=== PATIENT | female | born 1950 | race Caucasian/White ===

== ENCOUNTER 2019-03-05 09:05 | Outpatient (CLI) | payer MEDICARE, OTHER, SELFPAY ==
--- NOTE | 2019-03-05 09:39 | MM_ITS ---
WS: [id number] BILATERAL DIGITAL SCREENING MAMMOGRAPHY WITH CAD CLINICAL INFORMATION: SCREENING HISTORY: Screening mammogram. No current complaints. COMPARISON: None. TECHNIQUE: Bilateral CC and MLO views. FINDINGS: The breasts are composed of heterogeneous fibroglandular density tissue, which can limit the detectio n of small underlying mass lesions. No obvious mammographic abnormality deep to the palpable marker r ight breast. Dystrophic calcification right breast. Heterogeneous diffuse calcifications right breast mid depth along the posterior nipple line some in a ductal distribution. Recommend SPOT MAGNIFICATION views for further evaluation. In addition, 1.8 cm focal asymmetric density right breast associated with the calcifications mid dept h along the posterior nipple line. Recommend SPOT COMPRESSION views and ULTRASOUND of this area. RIGHT DIAGNOSTIC MAMMOGRAPHY AND ULTRASOUND RIGHT BREAST REQUIRED DUE TO PALPABLE LUMP. Left breast appears unremarkable. MM/[place] [id number] IMPRESSION: BI-RADS: 0-Incomplete: Need additional imaging evaluation FOLLOW UP: Need Additional Imaging
== END 2019-03-05 09:06 | disposition home or self-care (01) ==
PROVIDERS: Family Provider Nurse Practitioner; Visit Provider Family Medicine
DX: Z12.31 Encounter for screening mammogram for malignant neoplasm of breast (principal)
CPT/HCPCS: 77067

== ENCOUNTER 2019-04-07 07:57 | Outpatient (CLI) | payer MEDICARE, OTHER, SELFPAY ==
--- NOTE | 2019-04-07 08:28 | US_ITS ---
WS: [id number] RIGHT DIGITAL MAMMOGRAPHY WITH CAD CLINICAL INFORMATION: RT BREAST LUMP COMPARISON: March 05, 2019 TECHNIQUE: 5 views of the right breast were obtained. FINDINGS: The right breast is composed of heterogeneous fibroglandular density tissue, which can limit the dete ction of small underlying mass lesions. Again seen is the 1.8 cm focal asymmetric density right breast with associated calcifications extendi ng along the posterior nipple line. This is unchanged since the prior screening mammogram and persist s on the spot compression view. Ultrasound is pending. Spot magnification views demonstrates heterogeneous pleomorphic and fine linear branching calcificati ons some in a ductal distribution associated with the asymmetric density and extending along the oute r quadrant right breast. ULTRASOUND BREAST RIGHT TECHNIQUE: Ultrasound right breast focused area of concern. CLINICAL INFORMATION: RT BREAST LUMP COMPARISON: None. FINDINGS: Ultrasound right breast 9:00 position in the area of palpable abnormality. There is a 2.6 x 1.6 hypoe choic irregular solid lesion. Associated vascularity. Findings suspicious for neoplasm. Right axilla is evaluated. No visualized enlarged pathologic lymph nodes. US/US breast RT limited* [id number] IMPRESSION: BI-RADS: 5-Highly Suggestive of Malignancy FOLLOW UP: US Guided Biopsy Recommended
== END 2019-04-07 07:58 | disposition home or self-care (01) ==
LOC: RADSHAW 08:01
PROVIDERS: Family Provider Nurse Practitioner; PCP Family Medicine; Visit Provider Family Medicine
DX: N63.15 Unspecified lump in the right breast, overlapping quadrants (principal)
CPT/HCPCS: 76642; 77065

== ENCOUNTER 2019-04-21 12:07 | Outpatient (CLI) | payer MEDICARE, OTHER, SELFPAY ==
--- NOTE | 2019-04-21 12:12 | US_ITS ---
WS: [id number] ULTRASOUND-GUIDED Right BREAST BIOPSY CLINICAL INFORMATION: RT BREAST LUMP COMPARISON: None. FINDINGS: The procedure including risks, benefits, and complications were discussed with the patient who agreed to proceed. Using sterile technique patient was prepped and draped in the usual sterile fashion. Aft er 1% lidocaine utilizing real-time ultrasound guidance 5 14-gauge cores were obtained of the right b reast lesion at the 9 o'clock position. Subsequently a titanium clip was placed in the biopsy cavity. No immediate complications. Pathology demonstrates invasive ductal carcinoma grade 2. Tumor size 1.3 CM. US/[place] [id number] IMPRESSION: 1. Uncomplicated ultrasound-guided right breast biopsy. 2. The pathology demonstrates invasive ductal carcinoma grade 2 3. Breast cancer prognostic profile pending. BI-RADS: 6-Known Biopsy-Proven Malignancy FOLLOW UP: See Report Recommend Breast surgery consultation .
[2019-04-30 09:25] LABS: Miscellaneous Test See Scanned Lab Rpt
== END 2019-04-21 12:08 | disposition home or self-care (01) ==
LOC: RAD 12:09
PROVIDERS: Family Provider Nurse Practitioner; PCP Family Medicine; Visit Provider Family Medicine
DX: C50.811 Malignant neoplasm of overlapping sites of right female breast (principal)
CPT/HCPCS: 19083; 88305; 88361; 88374; J2001

== ENCOUNTER 2019-07-12 10:31 | Outpatient (CLI) | payer MEDICARE, OTHER, SELFPAY ==
--- NOTE | 2019-07-13 13:44 | N.ONRAD NP_ITS ---
Radiation Oncology New Patient Visit Patient: Dorie Mejia MR#: [id number] : 1950> Age: 68> Sex: Female> Dictated by: Dr. Lan Hickman Date of Service: 07/12/2019 Referring Physician(s) : Diagnosis: C50.111 - malignant neoplasm of central portion of right female breast, Diagnosed 07/12/2019 (active). Radiotherapy to date: Summary > No prior radiation therapy. 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 Tumor was ER positive [place] positive HER-2/letitia negative. Oncotype DX score was 0. She underwent ultrasound-guided biopsy on April 21, 2019 she underwent definitive lumpectomy and sentinel lymph node sampling on May 24, 2019 she underwent reexcision for clear margins on June 24, 2019. As she has a favorable Oncotype DX score no chemotherapy was indicated we were asked to see her regarding adjuvant breast radiation treatment. Ms. Mata Mejia is a 68-year-old woman who noted a asymptomatic mass in her right breast while showering. Follow-up mammography on April 07, 2019 revealed a 1.8 cm focal asymmetric density in the right breast posterior to the nipple line unchanged from prior mammography. Ultrasonography revealed a 2.6 x 1.6 cm hypoechoic irregular solid lesion with vascularity suspicious for neoplasm. She underwent ultrasound-guided biopsy on April 21, 2019 which did confirm malignancy. Tumor was strongly ER positive at 96% [place] positive at 96% HER-2/letitia was not overexpressed. She then underwent right lumpectomy and sentinel lymph node sampling on May 24 2019 minutes revealed a 2.4 cm primary lesion. Closest margin was 2 mm DCIS was less than 1 mm from the closest margin. One lymph node was sampled and revealed a 4 mm deposit of metastatic disease. On June 23, 2018 she underwent reexcision for clear margins pathology at that time was clear for any residual disease She had an Oncotype DX score evaluated which was 0 and revealed only 9% risk of recurrence at 9 years with aromatase inhibitor or tamoxifen alone and no apparent benefit seen for chemotherapy in her case As result she is now to begin anastrozole after adjuvant radiation treatment Her weight and appetite and energy level are all stable. She does not go outside much in the summer because it causes an allergic cough or tickle this is gone on seasonally for many years. Current Medications: Antacid, cough Drops, ibuprofen. Allergies: Penicillin V Potassium and sulfADIAZINE. Medical History: No history of collagen vascular disease. No previous radiation therapy. Surgical History: Hysterectomy in 1982 and lumpectomy on 05/24/2019. Family History: Father is at age 66. Mother is at age 97. Maternal Uncle is at age 56 having experienced Colon Cancer. Father at the age of 66 from pancreatitis. Mother at age 97 from aspiration pneumonia and also had dementia. Had a maternal uncle who from colon cancer at the age of 56. Social History: Last screened on 07/12/2019 - Never smoked. Last screened on 07/12/2019 - Never drank. 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 Denies lack of appetite, fever, night sweats and change in weight. Eyes - Denies blurred vision and double vision. ENMT - Complains of mouth dryness. Denies dysphagia, ear pain, problems with hearing, stomatitis, altered taste and tinnitus. Neck - Denies neck pain. Integumentary - Denies rash. Breasts - Denies pain but has right breast heaviness. Cardiovascular - Denies arrhythmias, chest pain and edema. Respiratory - Complains of cough related to outdoor allergies. Denies dyspnea, hemoptysis and wheezing. Gastrointestinal - Complains of heartburn / dyspepsia. Denies abdominal pain, constipation, diarrhea, melena / GI bleeding, nausea and vomiting. Genitourinary (F) - Complains of nocturia gets up about 1 time per night. Denies dysuria, frequency, urgency, vaginal discharge / bleeding and vaginal spotting. Musculoskeletal - Complains of joint pain in the right knee and hip. Denies bone pain and muscle weakness. Neurologic - Complains of headaches occasionally. Denies dizziness. Endocrine - Denies diabetes and thyroid disease. Hematologic/Lymphatic - Denies tender or enlarged lymph nodes.. Vital Signs: Performed on 07/12/2019 11:18 AM BMI - 41.736 kg/m2 (high), Height - 51.00 in, Weight - 154.4 lbs, Temperature - 99.2 f, Pulse - 88, Respiration - 16, O2 Sat - 97 %, Pain - 0 and BP - 138/ 85 mm(hg). Physical Exam: Examination revealed a robust pleasant woman in no acute distress HEENT examination unremarkable. Arms had full range of motion no arm edema. Lymph nodes she had no palpable cervical supraclavicular or axillary adenopathy. Lungs were clear to auscultation. Heart regular without murmur gallop. Abdominal examination unremarkable. Right breast revealed semicircular incision around the areola. Well-healed breast unremarkable palpation outside of subtle fullness in the right central breast. Performance Status: 1 - No physically strenuous activity, but ambulatory and able to carry out light or sedentary work (e.g. office work, light house work). (ECOG) Pathology: Primary, c50.111 - malignant neoplasm of central portion of right female breast, Diagnosed 07/12/2019 (active). Lab: Current laboratory studies are not available at this time Imaging: See HPI Impression: In summary my impression is that of stage II (T2 N1 M0) grade 2 invasive ductal carcinoma the right breast she is ER and [place] positive HER-2/letitia negative with a 0 Oncotype DX score she has had reexcision with no residual disease at second surgery. She is healing well following this second resection. At this time she can proceed with adjuvant breast radiation therapy. I discussed the goals and toxicities of radiation. I outlined that radiation is a significant improvement in durable control over lumpectomy alone. I also discussed that phase 3 studies now show that 4-week course of hypofractionated radiation yields the same good outcome as conventional 6-week course of treatment. Thank you for allowing us to participate in her evaluation. Plan: Signed by: 07/13/2019 8:35:11 AM <<Signature on File>> Time spent with patient: 60 minutes CPT Code: CPT Code:
== END 2019-07-12 10:32 | disposition home or self-care (01) ==
PROVIDERS: PCP Family Medicine; Visit Provider Radiology Radiation Oncology
DX: C50.111 Malignant neoplasm of central portion of right female breast (principal); Z17.0 Estrogen receptor positive status [ER+]; C77.3 Secondary and unspecified malignant neoplasm of axilla and upper limb lymph nodes; K21.9 Gastro-esophageal reflux disease without esophagitis; Z90.11 Acquired absence of right breast and nipple; Z90.710 Acquired absence of both cervix and uterus; Z92.3 Personal history of irradiation; Z79.899 Other long term (current) drug therapy
CPT/HCPCS: 99204

== ENCOUNTER 2019-07-30 06:48 | Outpatient (RCR) | payer MEDICARE, OTHER, SELFPAY ==
--- NOTE | 2019-07-19 | CT_ITS ---
Radiation Therapy Planning CT images; total exam DLP: 347.34 mGy-cm MTDD
--- NOTE | 2019-08-03 17:36 | ONCRAD TMN_ITS ---
Radiation Oncology Weekly Treatment Management Patient: Dorie Mejia MR#: [id number] : 1950> Age: 68> Sex: Female Dictated by: Dr. Lan Hickman Date of Service: 07/27/2019 Referring Physician(s) : Primary Diagnosis: C50.111 - Malignant neoplasm of central portion of right female breast, Diagnosed 07/12/2019 (Active) Radiotherapy to date: Course: RT Breast 2019, Treatment Site: R Breast 4256, Ref. ID: [id number], Energy: 15X/6X, Dose/Fx (cGy): 266, #Fx: , Dose Correction (cGy): 0, Total Dose (cGy): 266, Start Date: 07/27/2019, Elapsed Days: 0 Current Complaints/Interval History: She has just begun treatment today. Samples of Aquaphor were given. She will plan to increase her daily activity level. Constitutional Complains of mild fatigue. Denies lack of appetite, fever and night sweats. ENMT Denies dysphagia. Integumentary No redness to the right breast Breasts Denies pain. Cardiovascular Denies chest pain. Respiratory Complains of cough occaisonally related to sinus drainage. Denies dyspnea and wheezing. Current Medications: Antacid, cough Drops, ibuprofen. Allergies: Penicillin V Potassium and sulfADIAZINE. Vital Signs: Physical Exam: Appears stable, no skin erythema or desquamation. Performance Status: 1 - No physically strenuous activity, but ambulatory and able to carry out light or sedentary work (e.g. office work, light house work). (ECOG) Lab: None pending in Radiation Oncology. Imaging: No new diagnostic imaging was performed since the last weekly treatment visit. All radiation therapy related imaging (including but not limited to kV, MV, and CBCT generated images) was reviewed. Appropriate changes, if any, were made to assure accurate target localization. Impression/Plan: Tolerating treatment well with expected side effects. Continue treatment as planned. CPT: 99610 Signed by: Dr. Lan Hickman>08/03/2019 5:35:21 PM <<Signature on File>>
== END 2019-08-01 23:59 | disposition home or self-care (01) ==
LOC: ONCMED 06:48
PROVIDERS: PCP Family Medicine; Visit Provider Radiology Radiation Oncology
DX: Z51.0 Encounter for antineoplastic radiation therapy (principal); C50.111 Malignant neoplasm of central portion of right female breast; Z17.0 Estrogen receptor positive status [ER+]; K21.9 Gastro-esophageal reflux disease without esophagitis
CPT/HCPCS: 77280; 77295; 77300; 77334; 77412; 77417

== ENCOUNTER 2019-08-16 06:52 | Outpatient (RCR) | payer MEDICARE, OTHER, SELFPAY ==
--- NOTE | 2019-08-03 17:43 | ONCRAD TMN_ITS ---
Radiation Oncology Weekly Treatment Management Patient: Dorie Mejia MR#: [id number] : 1950 Age: 68 Sex: Female Dictated by: Dr. Lan Hickman Date of Service: 08/03/2019 Referring Physician(s) : Primary Diagnosis: C50.111 - Malignant neoplasm of central portion of right female breast, Diagnosed 07/12/2019 (Active) Radiotherapy to date: Course: RT Breast 2019, Treatment Site: R Breast 4256, Ref. ID: [id number], Energy: 15X/6X, Dose/Fx (cGy): 266, #Fx: , Dose Correction (cGy): 0, Total Dose (cGy): 1,596, Start Date: 07/27/2019, Elapsed Days: 7 Current Complaints/Interval History: Feeling better now than in a long time. More active. No breast symptoms. Using Aquphor. Constitutional Denies lack of appetite, fatigue, fever, night sweats and change in weight. ENMT Denies dysphagia. Integumentary Has no redness to the right breast Breasts Denies pain. Cardiovascular Denies arrhythmias, chest pain and edema. Respiratory Complains of cough occasionally. Denies dyspnea and wheezing. Current Medications: Antacid, cough Drops, ibuprofen. Allergies: Penicillin V Potassium and sulfADIAZINE. Vital Signs: Performed on 08/03/2019 3:53 PM BMI - 41.844 kg/m2 (high), Height - 51.00 in, Weight - 154.8 lbs, Temperature - 98.0 f, Pulse - 68, Respiration - 18, O2 Sat - 98 %, Pain - 0 and BP - 121/ 78 mm(hg). Physical Exam: No significant breast erythema noted. Performance Status: 1 - No physically strenuous activity, but ambulatory and able to carry out light or sedentary work (e.g. office work, light house work). (ECOG) Lab: None pending in Radiation Oncology. Imaging: No new diagnostic imaging was performed since the last weekly treatment visit. All radiation therapy related imaging (including but not limited to kV, MV, and CBCT generated images) was reviewed. Appropriate changes, if any, were made to assure accurate target localization. Impression/Plan: Tolerating treatment well with expected side effects. Continue treatment as planned. CPT: 01025 Signed by: Dr. Lan Hickman>08/03/2019 5:42:33 PM <<Signature on File>>
--- NOTE | 2019-08-10 15:35 | N.ONRAD NP_ITS ---
Radiation Oncology Weekly Treatment Management Patient: Dorie Mejia MR#: [id number] : 1950> Age: 68> Sex: Female Dictated by: Lxeie Webber Date of Service: 08/10/2019 Referring Physician(s) : Diagnosis: C50.111 - Malignant neoplasm of central portion of right female breast, Diagnosed 07/12/2019 (Active) Patient presents today for check-up by registered nurse. The patients has had Course: RT Breast 2019, Treatment Site: R Breast 4256, Ref. ID: [id number], Energy: 15X/6X, Dose/Fx (cGy): 266, #Fx: , Dose Correction (cGy): 0, Total Dose (cGy): 2,926, Start Date: 07/27/2019, Elapsed Days: 14. Patient Has complaint of slight redness to under the right breast. I have addressed complaints by making sure patient is applying Aquaphor which she is doing it three times per day. Nursing assessment of patient as follows: Constitutional Complains of fatigue off and on. Denies lack of appetite, fever and night sweats. ENMT Denies dysphagia. Integumentary Has slight redness to under the right breast Breasts Denies pain. Cardiovascular Denies chest pain. Respiratory Complains of cough occasionally. Denies dyspnea and wheezing. Questions encouraged and answered. I encouraged patient to call with any concerns. Patient verbalized understanding and denied any further needs at this time. Vital Signs: Performed on 08/10/2019 3:21 PM BMI - 41.682 kg/m2 (high), Height - 51.00 in, Weight - 154.2 lbs, Temperature - 98.5 f, Pulse - 74, Respiration - 18, O2 Sat - 97 %, Pain - 0 and BP - 131/ 78 mm(hg). Signed by: Lexie Webber>08/10/2019 3:35:01 PM <<Signature on File>>
== END 2019-08-16 23:59 | disposition home or self-care (01) ==
LOC: ONCMED 06:52
PROVIDERS: PCP Family Medicine; Visit Provider Specialist
DX: Z51.0 Encounter for antineoplastic radiation therapy (principal); C50.111 Malignant neoplasm of central portion of right female breast; Z17.0 Estrogen receptor positive status [ER+]; K21.9 Gastro-esophageal reflux disease without esophagitis
CPT/HCPCS: 77336; 77412; 77417

== ENCOUNTER 2019-08-17 12:11 | Emergency (ER) | payer MEDICARE, OTHER, SELFPAY ==
[2019-08-17 12:25] VITALS: BP 169/96; PULSE 78; RESP 16; O2SAT 96; BMI 29.0
--- NOTE | 2019-08-17 12:33 | XR_ITS ---
WS: [id number] XR chest 1V portable [id number] REASON FOR EXAM: chest pain FINDINGS: The heart and mediastinal interfaces normal. There is degenerate changes with spurring throughout the thoracic spine. The lung mota are adequately aerated. No pneumonia, pleural effusion, pulmonary edema, or mass effe ct. Granulomas are seen these are unchanged since previous exam March 02, 2015. The hilum and apices normal. XR/XR chest 1V portable [id number] IMPRESSION: Negative chest for acute findings.
--- NOTE | 2019-08-17 12:33 | ECG_ITS ---
[facility] ED Test Date: 2019-08-17 Pat Name: Dorie Mejia Department: Room: Gender: 1 Pole Tester: : 1950 Requested By: German Guzman Order Number: [id number] Lj MD: Ebonie Null M.D. Measurements Intervals [place] Rate: 75 P: 66 NH: 145 QRS: 14 QRSD: 87 T: 26 QT: 383 QTc: 429 Interpretive Statements SINUS RHYTHM WITH SINUS ARRHYTHMIA No previous ECG available for comparison Electronically Signed On 08-18-2019 13:45:44 CDT by Ebonie Null M.D. [email or web address]
[2019-08-17 12:35] VITALS: BP 169/96; PULSE 88; RESP 17; O2SAT 98
--- NOTE | 2019-08-17 12:45 | W.ED.CHESTPA ---
HPI - Chest Pain General: Chief Complaint: Chest Pain Stated Complaint: cp Time Seen by Provider: 08/17/19 12:33 History of Present Illness: HPI narrative: 60-year-old female comes in complaining of chest pain that she had began early this morning is kind been on and off she first initially felt that was reflux she took some antacid she has had similar episodes in the past with antacids have relieved it completely. She describes the pain as being on the left side radiating into her back the antacids did not help she later took an aspirin instead pain seemed to improve but after that she felt disoriented kind of out of it she felt like she might actually pass out over that this point chest pain is completely resolved she still has a mild dyspnea but states she thinks some of it may be anxiety over this whole episode. At this time she is not having any sharp or pressure-like chest pain radiating into the back. MD complaint: chest pain Onset (ago): hour(s) Timing of current episode: episodic Prior episodes: No Onset: during rest Pain location: left chest Pain radiation: back Severity: moderate Quality: tightness Relieving factors: nothing Exacerbating factors: nothing Associated symptoms: Reports nausea; Deny abdominal pain, diaphoresis, dyspnea, fever(s), leg edema or palpitations Treatment prior to arrival: none Review of Systems Const: Denies: fever(s) or diaphoresis ENMT: Denies: throat pain, ear or mastoid pain, nasal discharge or nasal congestion Card: Denies: palpitations Resp: Reports: pain on inspiration; Denies: dyspnea GI: Reports: nausea; Denies: abdominal pain : Denies: flank pain, difficulty voiding, dysuria, urinary frequency or urinary urgency Skin/Breast: Denies: rash or pruritus PFSH ED PFSH: Medical History Gastroesophageal reflux disease Surgical History H/O: hysterectomy S/P breast lumpectomy Social History Smoking and tobacco status: never smoked Physical Exam Const: COMMON NORMALS: no acute distress GENERAL APPEARANCE: cooperative and comfortable ORIENTATION/CONSCIOUSNESS: Yes awake, Yes oriented to person, Yes oriented to place and Yes oriented to time HENMT: COMMON NORMALS: normocephalic, atraumatic, hearing grossly normal bilaterally, external ears normal, EAC's normal, TM's normal bilaterally, Normal nasal mucous membranes and turbinates present, moist oral mucous membranes and oropharynx normal HEAD & SCALP: normocephalic and atraumatic NOSE: Normal nasal mucous membranes and turbinates present EXTERNAL EAR: Yes external ears normal EXTERNAL AUDITORY CANAL: EAC's normal TYMPANIC MEMBRANE: TM's normal bilaterally Eye: COMMON NORMALS: Equal, round and reactive pupils present, EOMs intact bilaterally, conjunctivae normal and no scleral icterus CONJUNCTIVA: Yes conjunctivae normal PUPIL: Yes Equal, round and reactive pupils present Neck/C-Spine: COMMON NORMALS: full ROM, no lymphadenopathy, supple and no JVD Lymph: LYMPHATIC: no lymphadenopathy noted and no lymphedema noted Resp: COMMON NORMALS: normal respiratory effort, No retractions, No use of accessory muscles and clear to auscultation bilaterally AUSCULTATION: clear to auscultation bilaterally Cardio: COMMON NORMALS: no JVD, regular rate, regular rhythm and No murmurs present (Cardio) RATE: regular rate RHYTHM: regular rhythm GI: COMMON NORMALS: Soft to palpation and No hepatosplenomegaly present AUSCULTATION: Yes normoactive bowel sounds PALPATION: Yes Soft to palpation, No Tenderness to palpation present (GI), No Guarding due to palpation present (GI) and Yes No hepatosplenomegaly present Extremity: COMMON NORMALS: normal to inspection, capillary refill normal, no clubbing, cyanosis or edema, no calf tenderness and no pedal edema Neuro: SENSORIUM/ORIENTATION: Yes oriented to person, Yes oriented to place and Yes oriented to time Skin: COMMON NORMALS: no rashes or lesions noted GENERAL SKIN EXAM: no rashes or lesions noted Course Vital Signs: Vital signs: Vital Signs Pulse Rate 76 08/17/19 16:03 Respiratory Rate 16 08/17/19 16:03 Blood Pressure 153/87 08/17/19 16:03 Pulse Oximetry 95 08/17/19 16:03 MDM - Chest Pain MDM Narrative: Medical decision making narrative: We will go ahead and start her on pantoprazole. Seems to be more GI in nature. However follow-up with her primary care doctor about further evaluation if she has any worsening or change symptoms return to the emergency room. Did ask her to start taking baby aspirin daily as well to. Lab Data: Labs: Lab Results 08/17/19 08/17/19 08/17/19 Range/Units 12:42 12:42 12:42 WBC 6.4 (4.0-10.0) 10^3/ uL RBC 5.09 (4.1-5.3) 10^6/u L Hgb 14.1 (11.5-15.3) g/dL Hct 43.7 (37.0-47.0) % MCV 85.9 (81-99) fL MCH 27.7 L (28.0-34.0) pg MCHC 32.3 (30.0-36.0) g/dL RDW 12.2 (12.1-15.1) % Plt Count 297 (130-400) 10^3/c mm MPV 9.1 (7.4-10.4) fL Neut % (Auto) 53.2 % Lymph % (Auto) 32.3 % Long % (Auto) 9.1 % Eos % (Auto) 3.8 % Baso % (Auto) 1.1 % Neut # (Auto) 3.4 (1.8-7.7) 10^3/u L Lymph # (Auto) 2.1 (0.8-4.8) 10^3/u L Long # (Auto) 0.6 (0.2-0.9) 10^3/u L Eos # (Auto) 0.2 (0.0-0.8) 10^3/u L Baso # (Auto) 0.1 (0.0-0.1) 10^3/u L Nucleated RBC % (a uto) 0 % Nucleated RBCs # 0.0 /100WBC Sodium 138 (136-145) mmol/L Potassium 4.0 (3.5-5.1) mmol/L Chloride 101 (98-107) mmol/L Carbon Dioxide 24 (22-29) mmol/L Anion Gap 17.0 (5-19) BUN 10 (8-23) mg/dL Creatinine 0.9 (0.5-0.9) mg/dL GFR Calculation 62.3 L (90-130) mL/min Glucose 103 (65-115) mg/dL Calculated Osmolal ity 282 L (285-295) mOsm/k g Calcium 10.3 (8.5-10.5) mg/dL Total Bilirubin 0.2 (0.15-1.2) mg/dL AST 18 (0-32) U/L ALT 21 (0-33) U/L Alkaline Phosphata se 78 (35-105) IU/L Troponin T Baselin e 6 (0-10) ng/L Troponin T 120 Min [place] (0-10) ng/L Delta Troponin T (0-10) ABS# Total Protein 7.7 (6.6-8.7) g/dL Albumin 4.4 (3.5-5.2) g/dL Globulin 3.3 (1.3-4.6) g/dL Lipase 56 (13-60) U/L // Range/Units 14:46 WBC (4.0-10.0) 10^3/ uL RBC (4.1-5.3) 10^6/u L Hgb (11.5-15.3) g/dL Hct (37.0-47.0) % MCV (81-99) fL MCH (28.0-34.0) pg MCHC (30.0-36.0) g/dL RDW (12.1-15.1) % Plt Count (130-400) 10^3/c mm MPV (7.4-10.4) fL Neut % (Auto) % Lymph % (Auto) % Long % (Auto) % Eos % (Auto) % Baso % (Auto) % Neut # (Auto) (1.8-7.7) 10^3/u L Lymph # (Auto) (0.8-4.8) 10^3/u L Long # (Auto) (0.2-0.9) 10^3/u L Eos # (Auto) (0.0-0.8) 10^3/u L Baso # (Auto) (0.0-0.1) 10^3/u L Nucleated RBC % (a uto) % Nucleated RBCs # /100WBC Sodium (136-145) mmol/L Potassium (3.5-5.1) mmol/L Chloride (98-107) mmol/L Carbon Dioxide (22-29) mmol/L Anion Gap (5-19) BUN (8-23) mg/dL Creatinine (0.5-0.9) mg/dL GFR Calculation (90-130) mL/min Glucose (65-115) mg/dL Calculated Osmolal ity (285-295) mOsm/k g Calcium (8.5-10.5) mg/dL Total Bilirubin (0.15-1.2) mg/dL AST (0-32) U/L ALT (0-33) U/L Alkaline Phosphata se (35-105) IU/L Troponin T Baselin e (0-10) ng/L Troponin T 120 Min [place] 6.10 (0-10) ng/L Delta Troponin T 0.10 (0-10) ABS# Total Protein (6.6-8.7) g/dL Albumin (3.5-5.2) g/dL Globulin (1.3-4.6) g/dL Lipase (13-60) U/L Discharge Plan Discharge Patient Disposition: Home, Self-Care Clinical Impression: Atypical chest pain, Gastroesophageal reflux disease, Breast cancer Condition: Stable Prescriptions: New Protonix 40 mg tablet,delayed release (DR/EC) 40 mg PO DAILY 56 Days Qty: 56 RF: 0 No Action anastrozole 1 mg Tablet 1 mg PO DAILY RF: 0 Discharge Orders: Discharge Order (Routine); Ordered 08/17/19 Ordered By: German Jones Referrals: Daily Meyers MD [Primary Care Provider] - Discharge Diet: Usual diet Discharge Activity: Increase activity as tolerated Discharge Date/Time: 08/17/19 16:06 Coding Level of Care Code ED Record Center Coordinator for Chg Fwd Exam Comprehensive
[2019-08-17 12:53] LABS: Basophils # 0.1 10^3/uL (0.0-0.1); Basophils % 1.1 %; Eosinophils # 0.2 10^3/uL (0.0-0.8); Eosinophils % 3.8 %; Hematocrit 43.7 % (37.0-47.0); Hemoglobin 14.1 g/dL (11.5-15.3); Lymphocytes # 2.1 10^3/uL (0.8-4.8); Lymphocytes % 32.3 %; Mean Corpuscular HGB Conc 32.3 g/dL (30.0-36.0); Mean Corpuscular Hemoglobin 27.7 pg (28.0-34.0); Mean Corpuscular Volume 85.9 fL (81-99); Mean Platelet Volume 9.1 fL (7.4-10.4); Monocytes # 0.6 10^3/uL (0.2-0.9); Monocytes % 9.1 %; Neutrophils # 3.4 10^3/uL (1.8-7.7); Neutrophils % 53.2 %; Nucleated Red Blood Cells % 0 %; Platelet Count 297 10^3/cmm (130-400); Red Blood Count 5.09 10^6/uL (4.1-5.3); Red Cell Distribution Width 12.2 % (12.1-15.1); White Blood Count 6.4 10^3/uL (4.0-10.0)
[2019-08-17 13:08] LABS: Alanine Aminotransferase 21 U/L (0-33); Albumin Level 4.4 g/dL (3.5-5.2); Alkaline Phosphatase 78 IU/L (35-105); Aspartate Amino Transferase 18 U/L (0-32); Blood Urea Nitrogen 10 mg/dL (8-23); Calcium 10.3 mg/dL (8.5-10.5); Carbon Dioxide 24 mmol/L (22-29); Chloride 101 mmol/L (98-107); Globulin 3.3 g/dL (1.3-4.6); Glomerular Filtration Rate 62.3 mL/min (90-130); Glucose 103 mg/dL (65-115); Lipase 56 U/L (13-60); Osmolality Calculated 282 mOsm/kg (285-295); Sodium 138 mmol/L (136-145); Total Bilirubin 0.2 mg/dL (0.15-1.2); Total Protein 7.7 g/dL (6.6-8.7)
[2019-08-17 13:11] LABS: Troponin(5th) Baseline 6 ng/L (0-10)
[2019-08-17 13:55] VITALS: BP 153/87; PULSE 71; RESP 13; O2SAT 96
--- NOTE | 2019-08-17 14:33 | ECG_ITS ---
[facility] ED Test Date: 2019-08-17 Pat Name: Dorie Mejia Department: Room: Gender: 1 Certified Addiction Counselor: : 1950 Requested By: German Guzman Order Number: [id number] Lj MD: Ebonie Null M.D. Measurements Intervals [place] Rate: 69 P: 56 AK: 152 QRS: 14 QRSD: 84 T: 18 QT: 392 QTc: 422 Interpretive Statements SINUS RHYTHM LOW QRS VOLTAGE IN PRECORDIAL LEADS [QRS DEFLECTION < 1.0 mV IN CHEST LEADS] No previous ECG available for comparison Electronically Signed On 08-18-2019 14:16:13 CDT by Ebonie Null M.D. [id number]
[2019-08-17 16:03] VITALS: BP 153/87; PULSE 76; RESP 16; O2SAT 95
--- NOTE | 2019-08-20 09:15 | DCPLANNER ---
subcontracts manager had message to schedule a follow up appointment for patient for an outpatient stress test. Case manger faxed order to centralized scheduling, will call for appointment information.
--- NOTE | 2019-08-26 13:52 | DCPLANNER ---
Patient has a stress test scheduled for Saturday, September 07, 2019 at 10:00, centralized scheduling will call patient with appointment information.
--- NOTE | 2019-09-10 14:58 | DCPLANNER ---
Patient did attend out patient stress test scheduled for 09.07.19.
== END 2019-08-17 16:06 | disposition home or self-care (01) ==
PROVIDERS: Emergency Provider Family Medicine; PCP Family Medicine
DX: R07.89 Other chest pain (principal); K21.9 Gastro-esophageal reflux disease without esophagitis; C50.919 Malignant neoplasm of unspecified site of unspecified female breast
CPT/HCPCS: 12345; 36415; 71045; 80053; 83690; 84484; 85025; 93005; 99283; 99284

== ENCOUNTER 2019-08-24 06:55 | Outpatient (RCR) | payer MEDICARE, OTHER, SELFPAY ==
--- NOTE | 2019-08-18 15:46 | ONCRAD TMN_ITS ---
Radiation Oncology Weekly Treatment Management Patient: Dorie Mejia MR#: [id number] : 1950> Age: 68> Sex: Female Dictated by: Dr. Osman Lopez Date of Service: 08/18/2019 Referring Physician(s) : Primary Diagnosis: C50.111 - Malignant neoplasm of central portion of right female breast, Diagnosed 07/12/2019 (Active) Radiotherapy to date: Course: RT Breast 2019, Treatment Site: R Breast 4256, Ref. ID: [id number], Energy: 15X/6X, Dose/Fx (cGy): 266, #Fx: , Dose Correction (cGy): 0, Total Dose (cGy): 4,256, Start Date: 07/27/2019, End Date: 08/18/2019, Elapsed Days: Current Complaints/Interval History: Seems to be tolerating radiation well. She did go to the emergency room yesterday with chest pain. She had a cardiac evaluation which was negative. She was placed on Protonix. She states that her has wanted her to be evaluated for reflux for years. She feels significantly better today. She has started the Protonix. The chest pain was very unlikely to be related to the radiation. She is receiving right breast radiation. No regional nodes are being treated. The breast has slight redness of the skin. Otherwise she has no side effects at all. She has completed whole breast radiation, receiving a dose of 4256 cGy in 16 fractions. She is now scheduled for 4 treatment boost and will finish Friday of next week. Constitutional Denies lack of appetite, fatigue, fever, night sweats and change in weight. ENMT Denies dysphagia. Integumentary Has redness to the right breast Breasts Denies pain. Cardiovascular Complains of chest pain in which she had some yesterday and went to the ER. Denies arrhythmias and edema. Respiratory Complains of cough related to seasonal allergies. Denies dyspnea and wheezing. Current Medications: Antacid, aspirin Low Dose, cough Drops, ibuprofen, pantoprazole Sodium. Allergies: Penicillin V Potassium and sulfADIAZINE. Vital Signs: Performed on 08/18/2019 3:02 PM BMI - 41.358 kg/m2 (high), Height - 51.00 in, Weight - 153.0 lbs, Temperature - 98.2 f, Pulse - 82, Respiration - 20, O2 Sat - 98 %, Pain - 0 and BP - 130/ 86 mm(hg). Physical Exam: Appears stable, No acute distress. The right breast has no significant edema other than a small amount of areolar edema in the area of her lumpectomy incision. The incision is intact and there is no evidence of infection. There is very minimal induration in the tumor bed area. The axillary incision looks excellent and there is no tenderness or mass or evidence of infection. The breast is soft and nontender. The skin has mild erythema with no dry desquamation.. Performance Status: 1 - No physically strenuous activity, but ambulatory and able to carry out light or sedentary work (e.g. office work, light house work). (ECOG) Lab: None pending in Radiation Oncology. Imaging: No new diagnostic imaging was performed since the last weekly treatment visit. All radiation therapy related imaging (including but not limited to kV, MV, and CBCT generated images) was reviewed. Appropriate changes, if any, were made to assure accurate target localization. Impression/Plan: Tolerating treatment well with expected side effects. Continue treatment as planned. CPT: 58930 Signed by: Dr. John Lopez>08/18/2019 3:45:18 PM <<Signature on File>>
--- NOTE | 2019-08-24 16:50 | ONCRAD TMN_ITS ---
Radiation Oncology Weekly Treatment Management Patient: Dorie Mejia MR#: [id number] : 1950> Age: 68> Sex: Female Dictated by: Dr. John Lopez Date of Service: 08/24/2019 Referring Physician(s) : Diagnosis: C50.111 - Malignant neoplasm of central portion of right female breast, Diagnosed 07/12/2019 (Active) Radiotherapy to date: Course: RT Breast 2019, Treatment Site: Yztfb2Od, Ref. ID: [id number], Energy: 15X/6X, Dose/Fx (cGy): 200, #Fx: 4 / 4, Dose Correction (cGy): 0, Total Dose (cGy): 800, Start Date: 08/19/2019, End Date: 08/24/2019, Elapsed Days: 5 Treatment Site: R Breast 4256, Ref. ID: [id number], Energy: 15X/6X, Dose/Fx (cGy): 266, #Fx: 16 / 16, Dose Correction (cGy): 0, Total Dose (cGy): 4,256, Start Date: 07/27/2019, End Date: 08/18/2019, Elapsed Days: 22 Chief Complaint/History of Present Illness: Tumor dose 5056 cGy in 20 fractions. She completes her course of radiation to the breast today. She has tolerated the course of treatment well. She did have a visit to the emergency room for noncardiac chest pain last week and was started on Protonix. This morning she awakened with what appeared to be a small amount of white dried discharge on the right nipple. She cleaned it off and there is been no subsequent drainage. She has no significant discomfort in the breast. Her skin reaction has been mild. Current Medications: Antacid, aspirin Low Dose, cough Drops, ibuprofen, pantoprazole Sodium. Allergies: Penicillin V Potassium and sulfADIAZINE. Current Complaints/Review of Systems: Constitutional - Denies lack of appetite, fatigue, fever, night sweats and change in weight. ENMT - Denies dysphagia. Integumentary - Has pinkness / caraballo to the right breast. Breasts - Complains of nipple discharge from the right breast in which she woke up with it dry on the breast.. Denies pain. Cardiovascular - Denies arrhythmias and chest pain. Respiratory - Denies cough, dyspnea and wheezing. Vital Signs: Performed on 08/24/2019 3:11 PM BMI - 41.79 kg/m2 (high), Height - 51.00 in, Weight - 154.6 lbs, Temperature - 98.5 f, Pulse - 78, Respiration - 18, O2 Sat - 95 % (low), Pain - 0 and BP - 133/ 84 mm(hg). Physical Exam: Alert, oriented, no distress. The breast has no significant edema. There is slight erythema of the skin with mild dry desquamation. The lumpectomy incision is intact. There is no evidence of infection in the area of the tumor bed. There is minimal induration in the tumor bed. Overall the cosmetic result is very good. She has an excellent range of motion in the right shoulder and she has no lymphedema. Performance Status: 1 - No physically strenuous activity, but ambulatory and able to carry out light or sedentary work (e.g. office work, light house work). (ECOG) Lab: None pending in Radiation Oncology. Imaging: No new diagnostic imaging was performed since the last weekly treatment visit. All radiation therapy related imaging (including but not limited to kV, MV, and CBCT generated images) was reviewed. Appropriate changes, if any, were made to assure accurate target localization. Impression/Plan: Tolerated treatment well with a very good cosmetic result. She will return in approximately 1 month. We discussed that she will be due for postop mammography in December 2019. She is not sure whether she will have the mammography in [place] or [place].. CPT: 96395 Signed by: Dr. John Lopez>08/24/2019 4:48:41 PM <<Signature on File>>
== END 2019-08-31 23:59 | disposition home or self-care (01) ==
LOC: ONCMED 06:55
PROVIDERS: PCP Family Medicine; Visit Provider Specialist
DX: Z51.0 Encounter for antineoplastic radiation therapy (principal); C50.111 Malignant neoplasm of central portion of right female breast; Z17.0 Estrogen receptor positive status [ER+]; K21.9 Gastro-esophageal reflux disease without esophagitis
CPT/HCPCS: 77307; 77334; 77336; 77412; 77417

== ENCOUNTER 2019-09-07 07:15 | Outpatient (CLI) | payer MEDICARE, OTHER, SELFPAY ==
[2019-09-07 07:45] VITALS: BMI 29.2
--- NOTE | 2019-09-07 07:45 | ECG_ITS ---
[facility] Test Date: 2019-09-07 Pat Name: Dorie Mejia Department: Room: Gender: Female Continuous Absorption Process Operator: : 1950 Requested By: German Guzman Order Number: [id number] Lj MD: Elgin Gill M.D. Interpretive Statements NAME OF STUDY: LEXISCAN SESTAMIBI STRESS TEST INDICATION: Chest Pain RESULTS TO MORGAN LAWSON NOTE: Please note that this is the electrocardiogram portion of the Lexiscan/Sestamibi stress test. The perfusion scan will be documented separately. DATA: Baseline heart rate was 77 beats per minute. Baseline blood pressure was 163/88 millimeters of mercury. Target heart rate was 152. Maximum heart rate achieved was 129. which was 84 % of the predicted target heart rate. Maximum blood pressure was 189/91 millimeters of mercury. The reason for ending the test was completion of the protocol. The patient did not experience any symptoms. ELECTROCARDIOGRAM: BASELINE: Sinus rhythm. Normal axis. Old anterior wall myocardial infarction otherwise, no ST-T changes suggestive of ischemia noted. No arrhythmia noted. EXERCISE: After Lexiscan injection, no ST-T changes suggestive of ischemic noted. No arrhythmia noted. CONCLUSION: Please note due to baseline abnormality of the EKG specificity and sensitivity of the EKG portion of LexiScan MIBI stress test will be low 1. EKG not suggestive of ischemia 2. Lexiscan injection unremarkable. Blood pressure response was hypertensive 3. Perfusion scan will be documented separately. Electronically Signed On 09-07-2019 19:34:06 CDT by Elgin Gill M.D. [email or web address]
--- NOTE | 2019-09-07 07:46 | NMCV_ITS ---
NM ehsan perf SPECT r/s* [id number] Dorie Mejia Age: 68 Gender: F : 1950 Exam Date: 09/07/2019 08:35 Ordering Phys: German Jones DO Technologist: CHATA Schumacher Exam Location: [facility] Indications: Chest pain STRESS TEST Please see separate stress test report in [facility] for full findings IMAGE PROTOCOL Rest/Stress 1 Lexiscan Day Radiopharmaceutical Dose (mCi) Administration Site Administered by Rest: Tc-99m 10.7 IV CHATA Schumacher Sestamibi Stress:Tc-99m 32.8 IV CHATA Issa Sestamibi Rest: 07-Sep-2019 60 Discovery 630 Stress: 07-Sep-2019 45 Discovery 630 0.4mg Lexiscan. Supine position only as patient was unable to lay prone. SPECT RESULTS Technical Quality: Good Raw Data Analysis: Normal Image Corrections: No attenuation or motion correction applied Summed Stress Score: 1 Summed Rest Score: 5 Summed Difference Score: 0 PERFUSION FINDINGS Small size perfusion abnormality of mild severity of mid to apical inferolateral, apical inferior apical septal and apical rob on rest images with improved tracer uptake on stress images. This is suggestive of attenuation artifact. FUNCTIONAL RESULTS (calculated via Gated SPECT) Stress Image LV EF (%): 96 Stress EDV (mL):45 TID: 0.74 Stress ESV (mL):2 FUNCTIONAL FINDINGS: The left ventricle is normal in size. Transient Ischemia Dilatation of 0.74. There is hyperdynamic left ventricular systolic function. The left ventricular ejection fraction is hyperdynamic with a value of 96%. There is hyperdynamic left ventricular wall thickening. IMPRESSIONS 1. Myocardial perfusion imaging is normal. 2. Overall left ventricular systolic function is hyperdynamic without regional wall motion abnormalities. 3. The left ventricular ejection fraction is hyperdynamic with a value of 96%. 4. This study suggests a low likelihood of angiographically significant coronary artery disease. Ebonie Null MD (Electronically Signed) Final Date: 08 September 2019 17:54 S
--- NOTE | 2019-09-07 09:29 | SUR.PREOP ---
Patient reports no pain or discomfort prior to the start of the procedure.
[2019-09-07] MEDS: regadenoson 0.4 Mg/5 ml Syringe IVP (09:31)
[2019-09-07 09:38] VITALS: BP 152/91; PULSE 99
== END 2019-09-07 07:16 | disposition home or self-care (01) ==
LOC: RAD 07:16 → CDL 07:34
PROVIDERS: PCP Family Medicine; Visit Provider Family Medicine
DX: R07.9 Chest pain, unspecified (principal)
CPT/HCPCS: 78452; 93017; A9500; J2785

== ENCOUNTER 2020-07-20 09:55 | Outpatient (CLI) | payer MEDICARE, OTHER, SELFPAY ==
[2020-07-20 12:05] LABS: Basophils # 0.1 10^3/uL (0.0-0.1); Basophils % 0.9 %; Eosinophils # 0.2 10^3/uL (0.0-0.8); Eosinophils % 3.7 %; Hematocrit 42.6 % (37.0-47.0); Hemoglobin 13.9 g/dL (11.5-15.3); Lymphocytes # 1.6 10^3/uL (0.8-4.8); Lymphocytes % 27.5 %; Mean Corpuscular HGB Conc 32.6 g/dL (30.0-36.0); Mean Corpuscular Hemoglobin 27.7 pg (28.0-34.0); Mean Platelet Volume 9.3 fL (7.4-10.4); Monocytes # 0.4 10^3/uL (0.2-0.9); Monocytes % 7.6 %; Neutrophils # 3.38 10^3/uL (1.8-7.7); Neutrophils % 60.1 %; Nucleated Red Blood Cells % 0 %; Platelet Count 296 10^3/cmm (130-400); Red Blood Count 5.01 10^6/uL (4.1-5.3); Red Cell Distribution Width 12.5 % (12.1-15.1); White Blood Count 5.6 10^3/uL (4.0-10.0)
[2020-07-20 12:39] LABS: Alanine Aminotransferase 43 U/L (0-33); Albumin Level 4.5 g/dL (3.5-5.2); Alkaline Phosphatase 90 IU/L (35-105); Aspartate Amino Transferase 27 U/L (0-32); Blood Urea Nitrogen 13 mg/dL (8-23); Calcium 9.5 mg/dL (8.5-10.5); Carbon Dioxide 23 mmol/L (22-29); Chloride 104 mmol/L (98-107); Globulin 3.1 g/dL (1.3-4.6); Glomerular Filtration Rate 71.1 mL/min (90-130); Glucose 99 mg/dL (65-115); Osmolality Calculated 286 mOsm/kg (285-295); Sodium 138 mmol/L (136-145); Thyroid Stimulating Hormone 0.96 uIU/mL (0.27-4.20); Total Bilirubin 0.4 mg/dL (0.15-1.2); Total Protein 7.6 g/dL (6.6-8.7)
[2020-07-20 13:25] LABS: 25 Hydroxy Vitamin D 22 ng/mL (30-100)
--- NOTE | 2020-07-20 17:22 | ONC CON_ITS ---
Dr. Connell New Patient Note Patient: Dorie Mejia Unit #: [id number]: 1950 Dicatated By: Shiva Connell M.D.Date of Visit: July 20, 2020 Onc MED New Patient/Consult Referring Physician: Fredrick Montes Chief Complaint: Breast cancer. History of Present Illness: This is a 69-year-old woman with grade 2 invasive ductal carcinoma of the right breast, stage IB (T2, pN1a, M0), ER/WI positive, HER-2/letitia negative, and Oncotype DX low risk with recurrence score 0. She had become aware of a lump in the right breast sometime around January 2019. Her initial mammogram showed a 1.8 cm focal asymmetric density in the right breast. Her further mammogram views and ultrasound on 04/07/2019 were BI-RADS 5, highly suggestive of malignancy. Ultrasound showed a 2.6 x 1.6 cm hypoechoic irregular solid lesion at the 9 o'clock position, corresponding to the palpable nodule. There were no visualized enlarged axillary lymph nodes. Ultrasound-guided biopsy on 04/22/2019 showed grade 2 invasive ductal carcinoma. The breast prognostic profile showed ER positive at 96% and WI positive at 96%. HER-2/letitia was 2+ by IHC but negative by FISH with amplification ratio 1.1 and 3.3 HER-2 copies/cell. The Ki-67 was slightly high at 14%. She then had surgical consultation with Dr. Ebenezer Vincent. She underwent right breast lumpectomy with axillary sentinel lymph node biopsy on 05/24/2019. Pathology showed moderately differentiated invasive ductal carcinoma measuring 2.4 cm in greatest dimension. 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 There was DCIS within 0.1 cm of the anterior margin. The closest margin to invasive cancer is 0.2 cm. One axillary sentinel lymph node was positive for metastatic carcinoma. It measured 0.4 cm. There was no extranodal extension identified. She had reexcision lumpectomy on 06/24/2019. There is no residual malignancy identified. A postoperative mammogram in June 2019 showed seroma with 2 groups of suspicious calcifications. With that finding she had a reexcision of the anterior margin on 06/24/2019. Pathology was benign. Her Oncotype DX was found to be low risk with recurrence score of 0, corresponding to a 9-year risk of distant recurrence of 9% with adjuvant hormonal therapy. There was no predicted benefit with adjuvant chemotherapy. With that finding, she then underwent radiation to the right breast, completed on 08/24/2019 to a total dose of 5056 cGy. She then began adjuvant hormonal therapy with anastrozole 1 mg daily on 09/01/2019. Her DEXA scan on 01/13/2020 showed evidence of osteopenia with T score -2.3 in the left femoral neck. The lumbar spine T score was 1.7. She was recommended to have treatment with Prolia, which she declined. She is seen now for further management of the breast cancer. She has been feeling pretty good generally, though she says she has never had very good energy. There has been no recent change in her activity tolerance. 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 Her ECOG score is 1. She has good appetite. Her weight has been stable. She has not had fever and she does not have daytime hot flashes. She does tend to wake up at night feeling hot and having drenching sweat on a fairly frequent basis. She had a hysterectomy without oophorectomy in 1982. She thinks she had menopause in her early 40s, though she is not certain. She had no hormone replacement therapy. She has some allergy related sinus symptoms. She previously had been having cough all the time, but she says that got better after her breast surgeries. Her breathing has been okay except for the allergies. She does not complain of chest pain. Her acid reflux is adequately managed with Protonix. She has no other GI or complaints. She has a little stiffness in her joints and she has had ongoing problems with her right knee for several years. She does not complain of headache or dizziness. She sometimes has numbness in her hands during the night. She has no other focal neurologic symptoms. Past Medical History: Her medical history includes allergic rhinitis, breast cancer, and gastroesophageal reflux disease. She has a history of anemia and history of anxiety/panic attacks. Past Surgical History: Her surgical/procedural history includes reexcision lumpectomy of the right breast in 2019, right breast lumpectomy with axillary sentinel lymph node biopsy in 2019, ultrasound guided biopsy of the right breast in 2019, and hysterectomy without oophorectomy in 1982. Medications: All Day Allergy 1 Tablet (of 10 mg) Oral daily, Anastrozole 1 Tablet (of 1 mg) Tablet Oral daily, Ibuprofen 1 Tablet (of 200 mg) Tablet Oral daily PRN, Pantoprazole Sodium 1 Tablet (of 40 mg) Tablet, enteric coated Oral daily Allergies: Gold Au 198, Penicillin V Potassium, and sulfADIAZINE. Social History: Ms. Mejia is . 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 She is a non-smoker. She does not drink alcohol. Family History: Father at the age of 66 from pancreatitis. Mother had dementia and at age 97 from aspiration pneumonia. Her son has psoriatic arthritis. Her daughter has back issues and depression. A maternal uncle of colon cancer at the age of 56. Review Of Symptoms: Constitutional - She is says she has never had energy. There has been no change in her activity tolerance. She is able to do light work. Appetite is good. Her weight is stable. She has not had fever. She does not have daytime hot flashes, but she wakes up at night feeling hot inside and having a drenching sweat on a fairly frequent basis. ECOG score is 1, Eyes - No change in vision, ENMT - She recently had some transient hearing loss associated with allergies and she has allergy related sinus symptoms. No mouth sores. No sore throat or difficulty swallowing, Hematologic/Lymphatic - She has easy bruising. She has a history of anemia, Respiratory - No shortness of breath. She says she had been coughing all the time, but that is improved after her breast surgery.. No pleuritic pain or hemoptysis, Cardiovascular - No angina pain. No palpitations, Gastrointestinal - No nausea or vomiting. Her acid reflux is adequately managed with Protonix. No diarrhea or constipation. No blood in the stool or black stools, Genitourinary (F) - No dysuria or hematuria. No urinary frequency. No urgency or incontinence, Musculoskeletal - She has a little stiffness in her joints and she has been having pain in her right knee for several years. She has pain intermittently in the 4th toe on the right foot, significant enough to affect her walking, Neurologic - No headache or dizziness. She sometimes has numbness in her hands during the night. No other focal neurologic symptoms, Psychiatric - No anxiety or depression. She used to have panic attacks, but that was back in her early 40s. No insomnia. Vital Signs: Performed on July 20, 2020 10:39: 5, 2, 42.76 (HIGH), 1.50 sq.m, 51.00 in, 97 %, 73 /min, 18 /min, 148/87 mm(hg) (HIGH), 98.8 F, and 158.2 lbs (HIGH). Physical Examination: Constitutional - She appears to be in good general health, Eyes - Sclerae nonicteric. Conjunctivae clear, ENMT - No lesions noted in the oral cavity, Neck - No mass or thyromegaly, Hematologic/Lymphatic - No cervical or clavicular adenopathy, Respiratory - Lungs are clear with good air movement bilaterally, Cardiovascular - Heart rhythm is regular. There is a I/ systolic murmur. There is no gallop or rub noted, Breasts - The entire right breast is indurated and firm. There is some swelling and deformity involving the medial aspect of the nipple areolar complex. There is no discrete mass palpable. The left breast shows no mass. There is no axillary adenopathy, Abdomen - Soft. Liver and spleen are not enlarged. There is no abdominal mass or ascites noted and there is no inguinal adenopathy, Back/Spine - No spine or CVA tenderness noted, Extremities - No edema. Pedal pulses are palpable bilaterally. There is no visible abnormality in the right 4th toe, Integumentary - No rashes. No suspicious skin lesions noted, Neurologic - No focal neurologic deficits noted. Problem List: 1. Grade 2 invasive ductal carcinoma of the right breast, stage IB (T2, pN1a, M0), ER/WI positive, HER-2/letitia negative, and Oncotype DX low risk with recurrence score 0. 2. Osteopenia. 3. GERD. 4. Allergic rhinitis. Problems Addressed with this Encounter and Plan: 1. Patient with grade 2 invasive ductal carcinoma of the right breast, stage IB (T2, pN1a, M0), ER/WI positive, HER-2/letitia negative, and Oncotype DX low risk with recurrence score 0. She had presented with a palpable lump in the right breast with the diagnosis confirmed by ultrasound directed biopsy on 04/07/2019. She underwent right breast lumpectomy with axillary sentinel lymph node biopsy on 05/24/2019. She had a T2 primary lesion involving 1 sentinel lymph node. She had reexcision lumpectomy on 06/24/2019 due to abnormal postoperative mammogram, but with benign pathology. With the low risk Oncotype, chemotherapy was not recommended. She then underwent radiation to the right breast, completed on 08/24/2019 to a total dose of 5056 cGy. Adjuvant hormonal therapy with anastrozole 1 mg daily began on 09/01/2019. During follow-up she has had ongoing complaints of fatigue. She has a little stiffness in her joints and she reports having pain in her right knee, but that has been an ongoing problem for several years. She does have significant night sweating attributable to the anastrozole. Overall, she appears to be tolerating it with acceptable toxicity. Thus far there has been no evidence of recurrence of the breast cancer. She will continue adjuvant hormonal therapy with anastrozole 1 mg daily. She is overdue for her surveillance mammograms, and those will be scheduled. I will see her again in 6 months with lab studies to include CBC, comprehensive metabolic profile, TSH level, and 25 hydroxy vitamin D level. 2. She had osteopenia on her baseline DEXA scan in January 2020. She declined treatment with Prolia. She will require ongoing monitoring of her bone density. Signed By: Shiva Connell M.D. <<Signature on File>>
== END 2020-07-20 09:56 | disposition home or self-care (01) ==
LOC: ONCMED 10:05
PROVIDERS: PCP Family Medicine; Visit Provider Internal Medicine Medical Oncology
DX: C50.811 Malignant neoplasm of overlapping sites of right female breast (principal); M85.80 Other specified disorders of bone density and structure, unspecified site; K21.9 Gastro-esophageal reflux disease without esophagitis; J30.9 Allergic rhinitis, unspecified; D64.9 Anemia, unspecified; Z79.811 Long term (current) use of aromatase inhibitors; Z92.3 Personal history of irradiation
CPT/HCPCS: 36415; 80053; 82306; 84443; 85025; 99204

== ENCOUNTER 2020-08-02 13:44 | Outpatient (CLI) | payer MEDICARE, OTHER, SELFPAY ==
--- NOTE | 2020-08-02 13:49 | MM_ITS ---
WS: [id number] BILATERAL DIGITAL DIAGNOSTIC MAMMOGRAM MAMMOGRAPHY WITH CAD CLINICAL INFORMATION: HX OF BREAST CA HISTORY: History of right breast cancer radiation. COMPARISON: June 23, 2017 June 14, 2019. 04/07/2019 and 03/05/2019 TECHNIQUE: Bilateral CC, MLO, and ML views. FINDINGS: The breasts are composed of heterogeneous fibroglandular density, which can limit the detection of sm all underlying mass lesions. Postoperative changes lumpectomy upper-outer quadrant with parenchymal s carring. Skin thickening right breast due to treatment-related changes. A few punctate calcifications left breast. No suspicious focal mass, asymmetry, calcifications, or architectural distortion. MM/[id number] IMPRESSION: BI-RADS: 2-Benign FOLLOW UP: 1 Year Follow-up Recommend return to annual diagnostic mammography.
== END 2020-08-02 13:45 | disposition home or self-care (01) ==
LOC: RADSHAW 13:47
PROVIDERS: PCP Family Medicine; Visit Provider Internal Medicine Medical Oncology
DX: Z85.3 Personal history of malignant neoplasm of breast (principal)
CPT/HCPCS: 77066

== ENCOUNTER 2021-02-06 10:06 | Outpatient (CLI) | payer MEDICARE, OTHER, SELFPAY ==
--- NOTE | 2021-02-10 09:24 | ONC FU_ITS ---
Dr. Connell Patient Follow-Up Note Patient: Dorie Mejia Unit #: [id number]: 1950 Dicatated By: Shiva Connell M.D.Date of Visit:Feb 06, 2021 Onc Med Follow-up/Prog Note Chief Complaint: Breast cancer. History of Present Illness: This is a 70 year-old woman with grade 2 invasive ductal carcinoma of the right breast, stage IB (T2, pN1a, M0), ER/NV positive, HER-2/letitia negative, and Oncotype DX low risk with recurrence score 0. She had become aware of a lump in the right breast sometime around January 2019. Her initial mammogram showed a 1.8 cm focal asymmetric density in the right breast. Her further mammogram views and ultrasound on 04/07/2019 were BI-RADS 5, highly suggestive of malignancy. Ultrasound showed a 2.6 x 1.6 cm hypoechoic irregular solid lesion at the 9 o'clock position, corresponding to the palpable nodule. There were no visualized enlarged axillary lymph nodes. Ultrasound-guided biopsy on 04/22/2019 showed grade 2 invasive ductal carcinoma. The breast prognostic profile showed ER positive at 96% and NV positive at 96%. HER-2/letitia was 2+ by IHC but negative by FISH with amplification ratio 1.1 and 3.3 HER-2 copies/cell. The Ki-67 was slightly high at 14%. She then had surgical consultation with Dr. Ebenezer Vincent. She underwent right breast lumpectomy with axillary sentinel lymph node biopsy on 05/24/2019. Pathology showed moderately differentiated invasive ductal carcinoma measuring 2.4 cm in greatest dimension. 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 There was DCIS within 0.1 cm of the anterior margin. The closest margin to invasive cancer is 0.2 cm. One axillary sentinel lymph node was positive for metastatic carcinoma. It measured 0.4 cm. There was no extranodal extension identified. She had reexcision lumpectomy on 06/24/2019. There is no residual malignancy identified. A postoperative mammogram in June 2019 showed seroma with 2 groups of suspicious calcifications. With that finding she had a reexcision of the anterior margin on 06/24/2019. Pathology was benign. Her Oncotype DX was found to be low risk with recurrence score of 0, corresponding to a 9-year risk of distant recurrence of 9% with adjuvant hormonal therapy. There was no predicted benefit with adjuvant chemotherapy. With that finding, she then underwent radiation to the right breast, completed on 08/24/2019 to a total dose of 5056 cGy. Adjuvant hormonal therapy with anastrozole 1 mg daily began on 09/01/2019. Her DEXA scan on 01/13/2020 showed evidence of osteopenia with T score -2.3 in the left femoral neck. The lumbar spine T score was 1.7. She was recommended to have treatment with Prolia, which she declined. Her other medical illnesses include allergic rhinitis and GERD. She has a history of anemia and she also has a history of anxiety/panic attacks. Her prior surgeries include hysterectomy without oophorectomy in 1982. She is a non-smoker. She is seen for a follow-up visit. She has been feeling good generally. She says she has been feeling more energetic, and she has normal activity. ECOG score is zero. Her appetite is good. She has gained weight. She has not had fever. She still has some hot flashes, but not as bad. She has sinus symptoms off and on. Recently she has had a little bit of cough. She does not complain of shortness of breath or chest pain. She has no GI or complaints. She sometimes has joint pain, but it is tolerable. She very seldom has headache. She occasionally has numbness in her left hand at night. She has no other focal neurologic symptoms. Medications: Anastrozole 1 Tablet (of 1 mg) Tablet Oral daily, D3 1 Tablet (of 50 mcg ) Oral daily, Ibuprofen 1 Tablet (of 200 mg) Tablet Oral daily PRN, Pantoprazole Sodium 1 Tablet (of 40 mg) Tablet, enteric coated Oral daily Allergies: Gold Au 198, Penicillin V Potassium, and sulfADIAZINE. Vital Signs: Performed on Feb 06, 2021 13:00 Height - 51.00 in Weight - 161.8 lbs (HIGH) BSA - 1.52 sq.m BMI - 43.74 (HIGH) Temperature - 98.2 F (LOW) Pulse - 91 /min Respiration - 16 /min BP - 168/83 mm(hg) (HIGH) O2 Sat - 95 % (LOW) Pain - 0 Fatigue - 4 Physical Examination: Constitutional - She looks good generally, Eyes - Sclerae nonicteric. Conjunctivae clear, ENMT - No lesions noted in the oral cavity, Hematologic/Lymphatic - No cervical or clavicular adenopathy, Respiratory - Lungs are clear with good air movement bilaterally, Cardiovascular - Heart rhythm is regular. There is no murmur, gallop, or rub noted, Abdomen - Soft. Liver and spleen are not enlarged. There is no abdominal mass or ascites noted and there is no inguinal adenopathy, Extremities - No edema, Neurologic - No focal neurologic deficits noted. Problem List: 1. Grade 2 invasive ductal carcinoma of the right breast, stage IB (T2, pN1a, M0), ER/NV positive, HER-2/letitia negative, and Oncotype DX low risk with recurrence score 0. 2. Osteopenia. 3. GERD. 4. Allergic rhinitis. Problems Addressed with this Encounter and Plan: 1. Patient with grade 2 invasive ductal carcinoma of the right breast, stage IB (T2, pN1a, M0), ER/NV positive, HER-2/letitia negative, and Oncotype DX low risk with recurrence score 0. She had presented with a palpable lump in the right breast with the diagnosis confirmed by ultrasound directed biopsy on 04/07/2019. She underwent right breast lumpectomy with axillary sentinel lymph node biopsy on 05/24/2019. She had a T2 primary lesion involving 1 sentinel lymph node. She had reexcision lumpectomy on 06/24/2019 due to abnormal postoperative mammogram, but with benign pathology. With the low risk Oncotype, chemotherapy was not recommended. She then underwent radiation to the right breast, completed on 08/24/2019 to a total dose of 5056 cGy. Adjuvant hormonal therapy with anastrozole 1 mg daily began on 09/01/2019. During follow-up she had complainted of some fatigue and she also reported some joint pain and stiffness. At this point her energy/activity tolerance has improved, and the joint pain remains tolerable. Overall, she has been doing well clinically with no evidence of recurrence of the breast cancer. She continues adjuvant hormonal therapy with anastrozole 1 mg daily. She will be scheduled for a follow-up visit in 6 months. 2. She had osteopenia on her baseline DEXA scan in January 2020. She declined treatment with Prolia. She requires ongoing monitoring of her bone density. 3. She has GERD. It has been well controlled with pantoprazole. She would like to try getting off her PPI, so she will be given a prescription for famotidine 20 mg daily. Signed By: Shiva Connell M.D. <<Signature on File>>
== END 2021-02-06 10:07 | disposition home or self-care (01) ==
PROVIDERS: PCP Family Medicine; Visit Provider Internal Medicine Medical Oncology
DX: C50.811 Malignant neoplasm of overlapping sites of right female breast (principal); Z17.0 Estrogen receptor positive status [ER+]; M85.80 Other specified disorders of bone density and structure, unspecified site; K21.9 Gastro-esophageal reflux disease without esophagitis; J30.9 Allergic rhinitis, unspecified; Z90.11 Acquired absence of right breast and nipple; Z79.818 Long term (current) use of other agents affecting estrogen receptors and estrogen levels; Z79.899 Other long term (current) drug therapy; Z92.21 Personal history of antineoplastic chemotherapy
CPT/HCPCS: 99214

== ENCOUNTER 2021-08-13 14:16 | Outpatient (CLI) | payer MEDICARE, OTHER, SELFPAY ==
--- NOTE | 2021-08-13 14:35 | MM_ITS ---
WS: [id number] BILATERAL 3D TOMOSYNTHESIS DIGITAL DIAGNOSTIC MAMMOGRAPHY WITH CAD CLINICAL INFORMATION: HX OF BR CA COMPARISON: August 02, 2020 TECHNIQUE: Bilateral CC, MLO, and ML views. FINDINGS: The breasts are composed of heterogeneous fibroglandular density, which can limit the detection of sm all underlying mass lesions. Punctate calcifications. Stable postoperative changes RIGHT lumpectomy w ith parenchymal fibrosis and skin thickening due to treatment-related changes.. No suspicious focal mass, asymmetry, calcifications, or architectural distortion. No evidence of emilia gnancy. MM/[id number] IMPRESSION: BI-RADS: 2-Benign FOLLOW UP: 1 Year Follow-up Recommend return to annual diagnostic mammography.
== END 2021-08-13 14:17 | disposition home or self-care (01) ==
LOC: RAD 14:21
PROVIDERS: PCP Family Medicine; Visit Provider Family Medicine
DX: Z85.3 Personal history of malignant neoplasm of breast (principal)
CPT/HCPCS: 77062

== ENCOUNTER 2021-09-06 11:04 | Oncology outpatient (recurring) (ONCR) | payer MEDICARE, OTHER, SELFPAY ==
[2021-09-06 14:13] LABS: 25 Hydroxy Vitamin D 31 ng/mL (30-100); Thyroid Stimulating Hormone 1.44 uIU/mL (0.27-4.20)
== END 2021-09-30 23:59 | disposition home or self-care (01) ==
PROVIDERS: PCP Family Medicine; Visit Provider Internal Medicine Medical Oncology
DX: C50.811 Malignant neoplasm of overlapping sites of right female breast (principal); Z17.0 Estrogen receptor positive status [ER+]; M85.80 Other specified disorders of bone density and structure, unspecified site; R53.83 Other fatigue; Z79.818 Long term (current) use of other agents affecting estrogen receptors and estrogen levels; Z79.899 Other long term (current) drug therapy; Z92.3 Personal history of irradiation
CPT/HCPCS: 36415; 80053; 82306; 84443; 85025; 99214

== ENCOUNTER 2022-03-14 11:49 | Oncology outpatient (recurring) (ONCR) | payer MEDICARE, OTHER, SELFPAY | END 2022-04-02 23:59 | disposition home or self-care (01) | PROVIDERS: PCP Family Medicine; Visit Provider Internal Medicine Medical Oncology | DX: C50.111 Malignant neoplasm of central portion of right female breast (principal); Z17.0 Estrogen receptor positive status [ER+]; Z92.3 Personal history of irradiation; R53.83 Other fatigue; Z79.811 Long term (current) use of aromatase inhibitors | CPT/HCPCS: 99214 ==

== ENCOUNTER 2022-03-20 14:14 | Outpatient (CLI) | payer MEDICARE, OTHER, SELFPAY ==
--- NOTE | 2022-03-20 14:30 | XR_ITS ---
WS: [id number] DEXA (DUAL ENERGY X-RAY ABSORPTIOMETRY) Bone mineral density was performed using a groSolar machine. HISTORY: osteopenia COMPARISON: 01/13/[address] [facility]. Lumbar spine BMD (L1-L4): 1.275 g/cm2 T score: 0.8 Z score: 2.3 Total hip BMD: Left: 0.840 g/cm2. T score: -1.3 Z score: 0.0 Right: 0.824 g/cm2. T score: -1.5 Z score: -0.1 10 year probability of a major osteoporotic fracture is 26.6%. Comparison to the prior bone mineral density is difficult as this is an outside examination. The bone mineral density based upon the prior examination does appear to have decreased in both the hips and the lumbar spine. Prior lumbar spine BMD was 1.388. Prior hip BMD was 0.900. XR/XR DEXA axial skeleton* [id number] IMPRESSION: OSTEOPENIA based upon the WHO classification for females. Based upon the BMD from the prior outside imaging exams there does appear to be a decrease in BMD within both the lumbar spine and hips.
== END 2022-03-20 14:15 | disposition home or self-care (01) ==
LOC: RAD 14:15
PROVIDERS: PCP Family Medicine; Visit Provider Internal Medicine Medical Oncology
DX: M85.80 Other specified disorders of bone density and structure, unspecified site (principal); Z78.0 Asymptomatic menopausal state
CPT/HCPCS: 77080

== ENCOUNTER 2022-09-12 14:22 | Oncology outpatient (recurring) (ONCR) | payer MEDICARE, OTHER, SELFPAY ==
--- NOTE | 2022-08-15 09:19 | MM_ITS ---
WS: [id number] BILATERAL 3D TOMOSYNTHESIS DIGITAL DIAGNOSTIC MAMMOGRAPHY WITH CAD CLINICAL INFORMATION: ANNUAL - HX BR CA HISTORY: History of breast cancer COMPARISON: August 13, 2021 TECHNIQUE: Bilateral CC, MLO, and ML views. FINDINGS: The breasts are composed of heterogeneous fibroglandular density, which can limit the detection of sm all underlying mass lesions. Postoperative changes RIGHT breast lumpectomy with parenchymal scarring. Skin thickening RIGHT breast unchanged compatible with treatment-related changes. A few incidental p unctate calcifications LEFT breast. No suspicious focal mass, asymmetry, calcifications, or architectural distortion. No evidence of emilia gnancy. MM/[id number] IMPRESSION: BI-RADS: 2-Benign FOLLOW UP: 1 Year Follow-up Recommend return to annual diagnostic mammography.
[2022-09-12 14:50] VITALS: BP 169/86; PULSE 96; RESP 18; TEMP 37.1; O2SAT 94
[2022-09-12 15:03] LABS: Basophils # 0.1 10^3/uL (0.0-0.1); Basophils % 1.2 %; Eosinophils # 0.3 10^3/uL (0.0-0.8); Eosinophils % 3.8 %; Hemoglobin 13.9 g/dL (11.5-15.3); Lymphocytes # 2.3 10^3/uL (0.8-4.8); Mean Corpuscular HGB Conc 33.1 g/dL (30.0-36.0); Mean Corpuscular Hemoglobin 27.6 pg (28.0-34.0); Mean Corpuscular Volume 83.3 fl (81-99); Mean Platelet Volume 8.6 fL (7.4-10.4); Monocytes # 0.5 10^3/uL (0.2-0.9); Monocytes % 7.4 %; Neutrophils # 3.33 10^3/uL (1.8-7.7); Neutrophils % 51.3 %; Nucleated Red Blood Cells % 0 %; Platelet Count 294 10^3/cmm (130-400); Red Blood Count 5.04 10^6/uL (4.1-5.3); Red Cell Distribution Width 13.1 % (12.1-15.1); White Blood Count 6.5 10^3/uL (4.0-10.0)
[2022-09-12 15:23] LABS: Alanine Aminotransferase 19 U/L (0-33); Albumin Level 4.2 g/dL (3.5-5.2); Alkaline Phosphatase 106 U/L (35-105); Anion Gap 13.9 (5-19); Aspartate Amino Transferase 15 U/L (0-32); Blood Urea Nitrogen 13 mg/dL (8-23); Calcium 9.6 mg/dL (8.5-10.5); Carbon Dioxide 25 mmol/L (22-29); Chloride 102 mmol/L (98-107); Glucose 97 mg/dL (65-115); Osmolality Calculated 284 mOsm/kg (285-295); Potassium 3.9 mmol/L (3.5-5.1); Sodium 137 mmol/L (136-145); Total Bilirubin 0.3 mg/dL (0.15-1.2); Total Protein 7.2 g/dL (6.6-8.7)
[2022-09-12 15:39] LABS: 25 Hydroxy Vitamin D 29 ng/mL (30-100)
== END 2022-09-12 23:59 | disposition home or self-care (01) ==
PROVIDERS: PCP Family Medicine; Referring Provider Nurse Practitioner Family; Visit Provider Internal Medicine Medical Oncology
DX: C50.111 Malignant neoplasm of central portion of right female breast (principal); Z17.0 Estrogen receptor positive status [ER+]; R53.0 Neoplastic (malignant) related fatigue; G89.3 Neoplasm related pain (acute) (chronic); Z79.811 Long term (current) use of aromatase inhibitors; Z79.899 Other long term (current) drug therapy
CPT/HCPCS: 36415; 77062; 80053; 82306; 85025; 99214; G0279

== ENCOUNTER 2022-12-16 15:32 | Oncology outpatient (recurring) (ONCR) | payer MEDICARE, OTHER, SELFPAY | END 2022-12-31 23:59 | disposition home or self-care (01) | LOC: ONCMED 15:33 | PROVIDERS: PCP Family Medicine; Referring Provider Nurse Practitioner Family; Visit Provider Internal Medicine Medical Oncology | DX: C50.111 Malignant neoplasm of central portion of right female breast (principal); Z17.0 Estrogen receptor positive status [ER+] | CPT/HCPCS: 99214 ==

== ENCOUNTER 2023-06-16 12:55 | Oncology outpatient (recurring) (ONCR) | payer MEDICARE, OTHER, SELFPAY ==
[2023-06-16 13:24] LABS: Basophils # 0.1 10^3/uL (0.0-0.1); Eosinophils # 0.2 10^3/uL (0.0-0.8); Eosinophils % 3.3 %; Hematocrit 43.2 % (36-47); Lymphocytes # 2.2 10^3/uL (0.8-4.8); Lymphocytes % 36.7 %; Mean Corpuscular HGB Conc 33.3 g/dL (30-55); Mean Corpuscular Hemoglobin 27.9 pg (27-33); Mean Corpuscular Volume 83.7 fl (85-98); Mean Platelet Volume 8.7 fL (7.4-10.4); Monocytes # 0.5 10^3/uL (0.2-0.9); Neutrophils # 3.09 10^3/uL (1.8-7.7); Neutrophils % 50.7 %; Nucleated Red Blood Cells % 0 %; Platelet Count 298 10^3/cmm (157-399); Red Blood Count 5.16 10^6/uL (3.85-5.65); Red Cell Distribution Width 13.1 % (12.1-15.1)
[2023-06-16 13:42] LABS: Alanine Aminotransferase 26 U/L (0-33); Albumin Level 4.3 g/dL (3.5-5.2); Alkaline Phosphatase 114 U/L (35-105); Aspartate Amino Transferase 18 U/L (0-32); Blood Urea Nitrogen 14 mg/dL (8-23); Calcium 10.3 mg/dL (8.5-10.5); Carbon Dioxide 25 mmol/L (22-29); Chloride 106 mmol/L (98-107); Globulin 3.5 g/dL (1.3-4.6); Glucose 96 mg/dL (65-115); Osmolality Calculated 294 mOsm/kg (285-295); Sodium 142 mmol/L (136-145); Total Bilirubin 0.4 mg/dL (0.15-1.2); Total Protein 7.8 g/dL (6.6-8.7)
== END 2023-07-01 23:59 | disposition home or self-care (01) ==
PROVIDERS: Internal Medicine; PCP Family Medicine; Referring Provider Nurse Practitioner Family; Visit Provider Internal Medicine Medical Oncology
DX: C50.111 Malignant neoplasm of central portion of right female breast (principal)
CPT/HCPCS: 36415; 80053; 85025; 99213

== ENCOUNTER 2023-07-25 06:00 | Outpatient (CLI) | payer MEDICARE, OTHER, SELFPAY | END 2023-07-25 06:01 | LOC: SPT 07-29 10:41 | PROVIDERS: Visit Provider Physician Assistant | DX: Z46.89 Encounter for fitting and adjustment of other specified devices (principal); M17.11 Unilateral primary osteoarthritis, right knee | CPT/HCPCS: L1852 ==

== ENCOUNTER → 2023-07-25 09:39 | Outpatient (BNVA) | payer MEDICARE, OTHER, SELFPAY | PROVIDERS: PCP Family Medicine; Visit Provider Physician Assistant | DX: M25.561 Pain in right knee (principal); M17.11 Unilateral primary osteoarthritis, right knee | CPT/HCPCS: 73560; 73565; 99203 ==

== ENCOUNTER 2023-08-20 11:00 | Oncology outpatient (recurring) (ONCR) | payer MEDICARE, OTHER, SELFPAY ==
--- NOTE | 2023-08-20 11:00 | MM_ITS ---
WS: [id number] BILATERAL 3D TOMOSYNTHESIS DIGITAL DIAGNOSTIC MAMMOGRAPHY WITH CAD CLINICAL INFORMATION: HX OF BREAST CANCER HISTORY: RIGHT breast cancer with lumpectomy COMPARISON: 2022 TECHNIQUE: Bilateral CC, MLO, and ML views. FINDINGS: The breasts are composed of heterogeneous fibroglandular density, which can limit the detection of sm all underlying mass lesions. Incidental punctate calcifications LEFT breast. Postoperative changes jamie mpectomy RIGHT breast with parenchymal scarring. Treatment related changes with skin thickening RIGHT breast. This is similar to previous. No suspicious focal mass, asymmetry, calcifications, or architectural distortion. No evidence of emilia gnancy. MM/[id number] IMPRESSION: BI-RADS: 2-Benign FOLLOW UP: 1 Year Follow-up Recommend return to annual diagnostic mammography.
== END 2023-08-31 23:59 | disposition home or self-care (01) ==
LOC: RAD 08-21 09:00 → ONCMED 09-16 07:30
PROVIDERS: PCP Family Medicine; Referring Provider Nurse Practitioner Family; Visit Provider Internal Medicine
DX: Z85.3 Personal history of malignant neoplasm of breast
CPT/HCPCS: 77062; G0279

== ENCOUNTER → 2023-10-28 10:28 | Outpatient (BNVA) | payer MEDICARE, OTHER, SELFPAY | PROVIDERS: PCP Family Medicine; Visit Provider Physician Assistant | DX: M17.11 Unilateral primary osteoarthritis, right knee (principal) | CPT/HCPCS: 99213 ==

== ENCOUNTER 2023-12-17 11:40 | Oncology outpatient (recurring) (ONCR) | payer MEDICARE, OTHER, SELFPAY ==
[2023-12-17 12:15] LABS: Basophils # 0.1 10^3/uL (0.0-0.1); Basophils % 0.9 %; Eosinophils # 0.2 10^3/uL (0.0-0.8); Eosinophils % 3.1 %; Hematocrit 44.7 % (36-47); Lymphocytes # 2.5 10^3/uL (0.8-4.8); Lymphocytes % 32.1 %; Mean Corpuscular HGB Conc 32.7 g/dL (30-55); Mean Corpuscular Hemoglobin 27.4 pg (27-33); Mean Platelet Volume 8.7 fL (7.4-10.4); Monocytes # 0.7 10^3/uL (0.2-0.9); Monocytes % 8.3 %; Neutrophils # 4.29 10^3/uL (1.8-7.7); Nucleated Red Blood Cells % 0 %; Platelet Count 396 10^3/cmm (157-399); Red Blood Count 5.32 10^6/uL (3.85-5.65); Red Cell Distribution Width 13.1 % (12.1-15.1)
[2023-12-17 12:35] LABS: Alanine Aminotransferase 25 U/L (0-33); Albumin Level 4.3 g/dL (3.5-5.2); Alkaline Phosphatase 129 U/L (35-105); Anion Gap 14.4 (5-19); Aspartate Amino Transferase 17 U/L (0-32); Blood Urea Nitrogen 13 mg/dL (8-23); Calcium 9.7 mg/dL (8.5-10.5); Carbon Dioxide 25 mmol/L (22-29); Chloride 105 mmol/L (98-107); Creatinine Clr Calc Pharmacy 43.9812; Globulin 3.1 g/dL (1.3-4.6); Glucose 90 mg/dL (65-115); Osmolality Calculated 290 mOsm/kg (285-295); Potassium 4.4 mmol/L (3.5-5.1); Sodium 140 mmol/L (136-145); Total Bilirubin 0.4 mg/dL (0.15-1.2); Total Protein 7.4 g/dL (6.6-8.7)
[2023-12-17 15:11] LABS: Magnesium 2.3 mg/dL (1.7-2.3)
== END 2024-01-01 23:59 | disposition home or self-care (01) ==
PROVIDERS: Nurse Practitioner Family; PCP Family Medicine; Referring Provider Nurse Practitioner Family; Visit Provider Internal Medicine
DX: C50.111 Malignant neoplasm of central portion of right female breast (principal); M85.80 Other specified disorders of bone density and structure, unspecified site; R53.83 Other fatigue; Z78.0 Asymptomatic menopausal state
CPT/HCPCS: 36415; 80053; 83735; 85025; 99214

== ENCOUNTER 2024-01-21 16:49 | Emergency (ER) | payer MEDICARE, OTHER, SELFPAY ==
[2024-01-21] VITALS (10 sets, daily range): BP systolic 124–179; BP diastolic 68–103; PULSE 64–90; RESP 14–17; TEMP 36.7; O2SAT 93–95
--- NOTE | 2024-01-21 19:02 | W.ED.HA ---
HPI - Headache General: Chief Complaint: Headache Stated Complaint: headache, neck pain high bp and heart rate Time Seen by Provider: 01/21/24 18:29 History of Present Illness: Patient presents to the ER with complaints of headache and neck pain. Patient is also having some visual light sensitivity. Patient took ibuprofen at home before coming as she said her headache is basically gone she is still having some mild neck pain. She also says her blood pressure and heart rate was high. Blood pressure was upwards of the 170s and heart rate was approximately 105. She is not on any blood pressure medicine and normally does not have high blood pressure. 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 #1 ea 07/25/23 diclofenac sodium 1 % topical gel 4 g topical QID #100 grams 07/25/23 (Voltaren Arthritis Pain) Allergies Allergy/AdvReac Type Severity Reaction Status Date / Time Penicillins Allergy ALGY-Hives Verified 12/17/23 12:07 Sulfa (Sulfonamide Allergy ALGY-Hives Verified 12/17/23 12:07 Antibiotics) antihistimines Allergy ADR-Itching Uncoded 12/17/23 12:07 Review of Systems General: Reports: 10 or more systems reviewed and unremarkable except in HPI and below PFSH ED PFSH: Medical History Allergic rhinitis Chronic anxiety History of anemia Breast cancer Osteopenia Gastroesophageal reflux disease Surgical History History of lumpectomy (06/04/19) Right breast reexcision lumpectomy History of lumpectomy of right breast (05/24/19) Right breast lumpectomy with axillary sentinel lymph node biopsy H/O: hysterectomy Social History Smoking and tobacco/nicotine status: never used tobacco/nicotine Physical Exam Const: COMMON NORMALS: no acute distress, average body habitus, patient oriented x3, no limitations, healthy appearing, alert and well nourished HENMT: COMMON NORMALS: normocephalic, atraumatic, hearing grossly normal bilaterally, external ears normal, Normal external nose present and moist oral mucous membranes HEAD & SCALP: normocephalic and atraumatic NOSE: Normal external nose present EXTERNAL EAR: Yes external ears normal Eye: COMMON NORMALS: Equal, round and reactive pupils present, EOMs intact bilaterally, conjunctivae normal and no scleral icterus CONJUNCTIVA: Yes conjunctivae normal PUPIL: Yes Equal, round and reactive pupils present Neck/C-Spine: COMMON NORMALS: full ROM, no lymphadenopathy, supple, no meningeal signs, no JVD and Thyroid normal THYROID: Thyroid normal Chest: COMMONS NORMALS: normal inspection of the chest and normal palpation of entire chest wall Resp: COMMON NORMALS: normal respiratory effort, No retractions, No use of accessory muscles and clear to auscultation bilaterally AUSCULTATION: clear to auscultation bilaterally Cardio: COMMON NORMALS: no JVD, regular rate, regular rhythm, S1 normal heart sound present, S2 normal heart sound present, No gallops present (Cardio), No clicks present (Cardio), No murmurs present (Cardio) and No rub (Cardio) RATE: regular rate RHYTHM: regular rhythm HEART SOUNDS: S1 normal heart sound present and S2 normal heart sound present GI: COMMON NORMALS: Normal to inspection, nondistended, normoactive bowel sounds present, Soft to palpation, non-tender, No hepatosplenomegaly present and no masses PALPATION: Yes Soft to palpation and Yes No hepatosplenomegaly present Neuro: COMMON NORMALS: patient oriented x3 SENSORIUM/ORIENTATION: Yes alert MENINGEAL SIGNS: Yes no meningeal signs Course Vital Signs: Vital signs: Vital Signs Temperature 98.1 F 01/21/24 17:05 Pulse Rate 78 01/21/24 20:07 Respiratory Rate 17 01/21/24 18:37 Blood Pressure 130/80 01/21/24 20:07 Pulse Oximetry 95 01/21/24 20:07 MDM - Headache Medical Decision Making Patient was offered Toradol and Norflex which she declined. Patient was given oral clonidine which decreased her blood pressure down to 130/80. Patient states she is feeling much better and was ready to go. Patient be discharged home. Medical Records I reviewed the patient's medical records. Lab Data I reviewed the patient's lab results. 01/21/24 19:37 01/21/24 19:37 Laboratory Results WBC 7.01 10^3/uL (3.29-11.43) 01/21/24 19:37 RBC 5.33 10^6/uL (3.85-5.65) 01/21/24 19:37 Hgb 14.40 g/dL (11.27-16.99) 01/21/24 19:37 Hct 44.6 % (36-47) 01/21/24 19: MCV 83.7 fl (85-98) L 01/21/24 19: MCH 27.0 pg (27-33) 01/21/24 19:37 MCHC 32.3 g/dL (30-55) 01/21/24 19:37 RDW 13.5 % (12.1-15.1) 01/21/24 19:37 Plt Count 310 10^3/cmm (157-399) 01/21/24 19:37 MPV 9.0 fL (7.4-10.4) 01/21/24 19:37 Neut % (Auto) 59.1 % 01/21/24 19:37 Lymph % (Auto) 28.5 % 01/21/24 19:37 Campbell % (Auto) 7.4 % 01/21/24 19:37 Eos % (Auto) 3.4 % 01/21/24 19:37 Baso % (Auto) 1.3 % 01/21/24 19:37 Neut # (Auto) 4.14 10^3/uL (1.8-7.7) 01/21/24 19:37 Lymph # (Auto) 2.0 10^3/uL (0.8-4.8) 01/21/24 19:37 Campbell # (Auto) 0.5 10^3/uL (0.2-0.9) 01/21/24 19:37 Eos # (Auto) 0.2 10^3/uL (0.0-0.8) 01/21/24 19:37 Baso # (Auto) 0.1 10^3/uL (0.0-0.1) 01/21/24 19:37 Nucleated RBC % (auto) 0 % 01/21/24 19:37 Nucleated RBCs # 0.0 /100WBC 01/21/24 19:37 Sodium 140 mmol/L (136-145) 01/21/24 19:37 Potassium 4.2 mmol/L (3.5-5.1) 01/21/24 19:37 Chloride 105 mmol/L (98-107) 01/21/24 19:37 Carbon Dioxide 26 mmol/L (22-29) 01/21/24 19:37 Anion Gap 13.2 (5-19) 01/21/24 19:37 BUN 13 mg/dL (8-23) 01/21/24 19:37 Creatinine 1.1 mg/dL (0.5-0.9) H 01/21/24 19:37 GFR Calculation Not Reportable 01/21/24 19:37 Glucose 117 mg/dL (65-115) H 01/21/24 19:37 Calculated Osmolality 291 mOsm/kg (285-295) 01/21/24 19:37 Calcium 10.2 mg/dL (8.5-10.5) 01/21/24 19:37 Total Bilirubin 0.4 mg/dL (0.15-1.2) 01/21/24 19:37 AST 32 U/L (0-32) 01/21/24 19:37 ALT 28 U/L (0-33) 01/21/24 19:37 Alkaline Phosphatase 98 U/L (35-105) 01/21/24 19:37 Total Protein 7.3 g/dL (6.6-8.7) 01/21/24 19:37 Albumin 4.2 g/dL (3.5-5.2) 01/21/24 19:37 Globulin 3.1 g/dL (1.3-4.6) 01/21/24 19:37 All radiology interpretation(s) finalized by discharge Discharge Plan Discharge Patient Disposition: Home Clinical Impression: Headache Qualifiers: Headache type: unspecified Headache chronicity pattern: acute headache Intractability: not intractable Qualified Code(s): R51.9 - Headache, unspecified Hypertension Qualifiers: Hypertension type: unspecified Qualified Code(s): I10 - Essential (primary) hypertension Condition: Stable Prescriptions: No Action (DME) Right Knee (medial) 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 See Rx Instructions .Route .MEDSUPPLY Qty: 1 0RF Rx Instructions: As directed diclofenac sodium [Voltaren Arthritis Pain] 1 % gel 4 g topical QID Qty: 100 0RF Rx Instructions: apply to single knee, ankle, foot; for foot includes sole/toes/top of foot pantoprazole 40 mg tablet,delayed release (DR/EC) 40 mg PO DAILY cholecalciferol (vitamin D3) 25 mcg (1,000 unit) capsule 25 mcg PO DAILY exemestane 25 mg tablet See Rx Instructions .ROUTE .COMPLEX Qty: 90 3RF Dose Instruction: TAKE 1 TABLET BY MOUTH ONCE DAILY AFTER A MEAL Rx Instructions: TAKE 1 TABLET BY MOUTH ONCE DAILY AFTER A MEAL Discharge Orders: Discharge ED (Routine); Ordered 01/21/24 Ordered By: Enrrique Bender Referrals: Daily Meyers MD [Primary Care Provider] - 1 week Patient Instructions: Headache, Hypertension Activity Restrictions/Additional Instructions: Thank you for choosing [facility] for your healthcare needs today. Please realize that you were seen in the emergency department and that we are providing you with an emergency medical screening exam and this may not be a complete and all exclusive of all testing and/or medical workup we may need to determine your element or severity of your illness. It is very important that you follow-up as instructed with your primary care provider or specialist for the additional evaluation and to discuss your medical treatment plan. You may return to the emergency department should you have concerns or if your condition changes or worsens in any way. 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
[2024-01-21] MEDS: cloNIDine 0.1 mg Tablet PO (19:07)
[2024-01-21 19:48] LABS: Basophils # 0.1 10^3/uL (0.0-0.1); Basophils % 1.3 %; Eosinophils # 0.2 10^3/uL (0.0-0.8); Eosinophils % 3.4 %; Hematocrit 44.6 % (36-47); Lymphocytes % 28.5 %; Mean Corpuscular HGB Conc 32.3 g/dL (30-55); Mean Corpuscular Volume 83.7 fl (85-98); Monocytes # 0.5 10^3/uL (0.2-0.9); Monocytes % 7.4 %; Neutrophils # 4.14 10^3/uL (1.8-7.7); Neutrophils % 59.1 %; Nucleated Red Blood Cells % 0 %; Platelet Count 310 10^3/cmm (157-399); Red Blood Count 5.33 10^6/uL (3.85-5.65); Red Cell Distribution Width 13.5 % (12.1-15.1); White Blood Count 7.01 10^3/uL (3.29-11.43)
[2024-01-21 20:08] LABS: Alanine Aminotransferase 28 U/L (0-33); Albumin Level 4.2 g/dL (3.5-5.2); Alkaline Phosphatase 98 U/L (35-105); Anion Gap 13.2 (5-19); Aspartate Amino Transferase 32 U/L (0-32); Blood Urea Nitrogen 13 mg/dL (8-23); Calcium 10.2 mg/dL (8.5-10.5); Carbon Dioxide 26 mmol/L (22-29); Chloride 105 mmol/L (98-107); Globulin 3.1 g/dL (1.3-4.6); Glucose 117 mg/dL (65-115); Osmolality Calculated 291 mOsm/kg (285-295); Potassium 4.2 mmol/L (3.5-5.1); Sodium 140 mmol/L (136-145); Total Bilirubin 0.4 mg/dL (0.15-1.2); Total Protein 7.3 g/dL (6.6-8.7)
== END 2024-01-21 22:00 | disposition home or self-care (01) ==
PROVIDERS: Emergency Provider Emergency Medicine; PCP Family Medicine
DX: R51.9 Headache, unspecified (principal); I10 Essential (primary) hypertension; C50.919 Malignant neoplasm of unspecified site of unspecified female breast
CPT/HCPCS: 36415; 80053; 85025; 99283

== ENCOUNTER 2024-06-17 12:59 | Oncology outpatient (recurring) (ONCR) | payer MEDICARE, OTHER, SELFPAY ==
[2024-06-17 13:43] LABS: Basophils # 0.1 10^3/uL (0.0-0.1); Eosinophils # 0.3 10^3/uL (0.0-0.8); Hematocrit 41.7 % (36-47); Lymphocytes # 2.4 10^3/uL (0.8-4.8); Lymphocytes % 36.5 %; Mean Corpuscular HGB Conc 32.9 g/dL (30-55); Mean Corpuscular Hemoglobin 27.3 pg (27-33); Mean Corpuscular Volume 83.1 fl (85-98); Mean Platelet Volume 8.8 fL (7.4-10.4); Monocytes # 0.6 10^3/uL (0.2-0.9); Monocytes % 9.1 %; Neutrophils # 3.27 10^3/uL (1.8-7.7); Neutrophils % 49.1 %; Nucleated Red Blood Cells % 0 %; Platelet Count 287 10^3/cmm (157-399); Red Blood Count 5.02 10^6/uL (3.85-5.65); Red Cell Distribution Width 12.7 % (12.1-15.1); White Blood Count 6.68 10^3/uL (3.29-11.43)
[2024-06-17 14:01] LABS: Alanine Aminotransferase 24 U/L (0-33); Albumin Level 4.2 g/dL (3.5-5.2); Alkaline Phosphatase 97 U/L (35-105); Aspartate Amino Transferase 19 U/L (0-32); Blood Urea Nitrogen 14 mg/dL (8-23); Calcium 9.8 mg/dL (8.5-10.5); Carbon Dioxide 23 mmol/L (22-29); Chloride 104 mmol/L (98-107); Globulin 2.9 g/dL (1.3-4.6); Glucose 94 mg/dL (65-115); Osmolality Calculated 288 mOsm/kg (285-295); Sodium 139 mmol/L (136-145); Total Bilirubin 0.3 mg/dL (0.15-1.2); Total Protein 7.1 g/dL (6.6-8.7)
== END 2024-06-30 23:59 | disposition home or self-care (01) ==
PROVIDERS: Nurse Practitioner Family; PCP Family Medicine; Referring Provider Nurse Practitioner Family; Visit Provider Internal Medicine Medical Oncology
DX: C50.111 Malignant neoplasm of central portion of right female breast (principal); Z17.0 Estrogen receptor positive status [ER+]; Z92.3 Personal history of irradiation; Z79.811 Long term (current) use of aromatase inhibitors
CPT/HCPCS: 36415; 80053; 85025; 99214

== ENCOUNTER 2024-08-20 10:16 | Outpatient (CLI) | payer MEDICARE, OTHER, SELFPAY ==
--- NOTE | 2024-08-20 10:30 | MM_ITS ---
WS: [id number] Bilateral diagnostic 3D tomosynthesis digital mammogram, 08/20/2024 Clinical Data: hx breast cancer Comparison: 08/20/2023, 08/15/2022, 08/13/2021, 08/02/2020, 06/24/2019, 06/14/2019, 04/07/2019, 03/05/2019. Findings: The breasts show heterogeneous density. There is deformity and skin thickening of the right breast from the right lumpectomy. There are numerous mole markers on the left breast. The left breast is normal. MM/MM diag BI tomosynthesis [id number] Impression: 1. Negative left breast. 2. Skin thickening and decrease in size of the right breast from right lumpecto my, no evidence of recurrence. 3. Recommend annual mammograms BIRADS: 2 - Benign FOLLOW UP: 1 Year Follow-up The CAD policy checker was used
== END 2024-08-20 10:17 | disposition home or self-care (01) ==
LOC: RAD 10:18
PROVIDERS: PCP Family Medicine; Visit Provider Internal Medicine Medical Oncology
DX: C50.111 Malignant neoplasm of central portion of right female breast (principal); R23.4 Changes in skin texture; Z98.890 Other specified postprocedural states; R92.333 Mammographic heterogeneous density, bilateral breasts
CPT/HCPCS: 77062; G0279

== ENCOUNTER 2024-09-30 12:31 | Outpatient (CLI) | payer MEDICARE, OTHER, SELFPAY ==
--- NOTE | 2024-09-30 12:35 | XR_ITS ---
WS: [id number] DEXA (DUAL ENERGY X-RAY ABSORPTIOMETRY) Bone mineral density was performed using a Ranker machine. 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 T score: -1.5 Z score: 0.0 Right: 0.765 g/cm2. T score: -1.9 Z score: -0.4 10 year probability of a major osteoporotic fracture is 40.5%. Compared to the prior study from 03/20/2022. Lumbar spine bone mineral density has decreased by 1.9%. Bilateral hips bone mineral density has decreased by 4.9%. XR/XR DEXA axial skeleton* [id number] IMPRESSION: OSTEOPENIA based upon the WHO classification for females. Significant decrease of bone mineral density in the hips since the prior study. No significant change in the lumbar spine.
== END 2024-09-30 12:32 | disposition home or self-care (01) ==
LOC: RAD 12:32
PROVIDERS: PCP Family Medicine; Visit Provider Family Medicine
DX: Z13.820 Encounter for screening for osteoporosis (principal); M81.0 Age-related osteoporosis without current pathological fracture; M85.88 Other specified disorders of bone density and structure, other site
CPT/HCPCS: 77080

== ENCOUNTER 2024-12-15 11:07 | Oncology outpatient (recurring) (ONCR) | payer MEDICARE, OTHER, SELFPAY ==
[2024-12-15 11:39] LABS: Hematocrit 40.8 % (36-47); Hemoglobin 13.50 g/dL (11.27-16.99); Mean Corpuscular HGB Conc 33.1 g/dL (30-55); Mean Corpuscular Hemoglobin 27.5 pg (27-33); Mean Corpuscular Volume 83.1 fl (85-98); Nucleated Red Blood Cells % 0 %; Platelet Count 282 10^3/cmm (157-399); Red Blood Count 4.91 10^6/uL (3.85-5.65); White Blood Count 6.09 10^3/uL (3.29-11.43)
[2024-12-15 12:16] LABS: Alanine Aminotransferase 27 U/L (0-33); Albumin Level 4.2 g/dL (3.5-5.2); Alkaline Phosphatase 91 U/L (35-105); Anion Gap 14.0 (5-19); Aspartate Amino Transferase 21 U/L (0-32); Blood Urea Nitrogen 15 mg/dL (8-23); CA 15-3 12.4 U/mL (0-25); Calcium 9.7 mg/dL (8.5-10.5); Carbon Dioxide 25 mmol/L (22-29); Chloride 104 mmol/L (98-107); Creatinine Clr Calc Pharmacy 48.6100; Globulin 3.1 g/dL (1.3-4.6); Glucose 99 mg/dL (65-115); Osmolality Calculated 289 mOsm/kg (285-295); Potassium 4.0 mmol/L (3.5-5.1); Sodium 139 mmol/L (136-145); Total Protein 7.3 g/dL (6.6-8.7)
[2024-12-15 16:44] LABS: Ferritin 102 ng/mL (15-150); Iron 92 ug/dL (37-145); Total Iron Binding Capacity 270 mcg/dl; Unsaturated Iron Binding 178 ug/dL (112-347)
== END 2024-12-31 23:59 | disposition home or self-care (01) ==
PROVIDERS: Nurse Practitioner Family; PCP Family Medicine; Referring Provider Nurse Practitioner Family; Visit Provider Internal Medicine Medical Oncology
DX: Z08 Encounter for follow-up examination after completed treatment for malignant neoplasm (principal); Z85.3 Personal history of malignant neoplasm of breast; M85.80 Other specified disorders of bone density and structure, unspecified site; R71.8 Other abnormality of red blood cells; Z92.3 Personal history of irradiation
CPT/HCPCS: 36415; 80053; 82306; 82728; 83540; 83550; 85025; 86300; 99214